=== PATIENT | female | born 1960 | race Caucasian/White ===

== ENCOUNTER → 2022-08-24 10:04 | Outpatient (CLI) | payer OTHER, SELFPAY ==
[2022-08-24 10:49] LABS: Add Manual Diff / Slide Review NO; Basophils Absolute Auto 0 /uL (0-100); Basophils Percent Auto 0.6 % (0-2); Eosinophils Absolute Auto 100 /uL (0-450); Eosinophils Percent Auto 2.1 % (2-4); Hematocrit 39.4 % (36-46); Lymphocytes Absolute Auto 2300 /uL (1100-4500); Mean Corpuscular Hemoglobin 29.4 PG (26-34); Mean Corpuscular Volume 89.1 fL (80-100); Monocytes Absolute Auto 600 /uL (0-900); Monocytes Percent Auto 9.6 % (3-14); Neutrophils Absolute Auto 3000 /uL (1500-7000); Neutrophils Percent Auto 49.7 % (50-75); Platelet Count 269 X10^3/uL (150-400); Red Blood Cell Count 4.42 X10^6/uL (4.0-5.2); Red Cell Distribution Width 13.5 % (11.6-14.8)
[2022-08-24 11:17] LABS: Alanine Aminotransferase 26 IU/L (<35); Albumin 4.2 g/dL (3.5-5.0); Albumin Globulin Ratio 1.6 (1.0-2.8); Alkaline Phosphatase 68 U/L (38-126); Aspartate Aminotransferase 24 IU/L (14-36); BUN Creatinine Ratio 21.1 (6-22); Bilirubin Total 0.5 mg/dL (0.2-1.3); Blood Urea Nitrogen 15 mg/dL (7-17); Calcium 9.4 mg/dL (8.4-10.2); Carbon Dioxide 28 mmol/L (22-32); Chloride 106 mmol/L (98-107); Cholesterol 148 mg/dL (140-199); Estimated Glomerular Filt Rate > 60 mL/min (>60); Globulin 2.7 g/dL (1.7-4.1); Glucose 100 mg/dL (80-110); HDL Cholesterol 58 mg/dL (40-60); HEMOLYSIS < 15 (0-50); LDL Cholesterol Calculated 70 mg/dL (<100); Potassium 3.9 mmol/L (3.4-5.1); Sodium 141 mmol/L (137-145); Total Protein 6.9 g/dL (6.3-8.2); Triglycerides 100 mg/dL (35-150)
[2022-08-24 11:53] LABS: Thyroid Stimulating Hormone 2.82 uIU/mL (0.47-4.68)
[2022-08-24 15:08] LABS: Creatinine Urine Random 193.1 mg/dL
[2022-08-24 15:12] LABS: Microalbumi Creatinin Ratio Ur 9.8 ug/mg CR (<30); Microalbumin Urine Random 1.9 mg/dL (0-1.6)
== END ==
PROVIDERS: PCP Nurse Practitioner; Referring Provider Nurse Practitioner; Visit Provider Nurse Practitioner
DX: Z00.00 Encounter for general adult medical examination without abnormal findings (principal)
CPT/HCPCS: 36415; 80053; 80061; 82043; 82570; 84443; 85025

== ENCOUNTER 2022-11-06 08:18 | Emergency (ER) | payer OTHER, SELFPAY ==
[2022-11-06] VITALS (16 sets, daily range): BP systolic 99–189; BP diastolic 60–92; PULSE 66–134; RESP 4–22; TEMP 36.5; O2SAT 94–98; BMI 45.3
--- NOTE | 2022-11-06 08:33 | ED_ITS ---
HPI - Arrhythmia/Palpitations General Chief Complaint: Arrhythmia/Palpitations Stated Complaint: afib since 7am Time Seen by Provider: 11/06/22 08:23 Source: patient Mode of arrival: Family Vehicle Limitations: no limitations History of Present Illness HPI narrative: Patient is a 62-year-old female. Does have a history of atrial fibrillation. Is on Eliquis and also metoprolol. She has taken her medications consistently over the past several weeks. Her last episode of atrial fibrillation was several years ago. She has been cardioverted before. States she woke up this morning feeling like her heart was beating fast. She also states that her watch told her that she was in atrial fibrillation. Went to bed last night feeling normal. His of some tightness in her chest. No problems breathing. No recent changes in any of her medications. Related Data Home Medications Medication Instructions Recorded Confirmed acetaminophen 500 mg capsule 1,000 mg PO Q6H PRN 08/15/22 amlodipine 5 mg tablet 5 mg PO DAILY 08/15/22 atorvastatin 20 mg tablet 20 mg PO BEDTIME 08/15/22 dabigatran etexilate 150 mg 150 mg PO BID 08/15/22 capsule (Pradaxa) metoprolol succinate 25 mg 25 mg PO DAILY 08/15/22 tablet,extended release 24 hr multivitamin 1 tab PO QAM 08/15/22 naproxen sodium 220 mg tablet 220 mg PO DAILY 08/15/22 Previous Rx's Medication Instructions Recorded levothyroxine 175 mcg tablet 175 mcg PO DAILY #90 tabs 08/15/22 Allergies Allergy/AdvReac Type Severity Reaction Status Date / Time polymyxin B AdvReac Mild Verified 11/06/22 08:32 Review of Systems Constitutional Constitutional: Reports system reviewed and no additional complaints, except as documented Cardiovascular Cardiovascular: Reports system reviewed and no additional complaints, except as documented Respiratory Respiratory: Reports system reviewed and no additional complaints, except as d ocumented Gastrointestinal Gastrointestinal: Reports system reviewed and no additional complaints, except as documented Hematologic/Lymphatic On Anticoagulants: No Patient History Medical History Allergies Asthma Atrial fibrillation (~2011) Basal cell carcinoma (~2019) Cataracts, bilateral (~2015) Cervical spine disease (~2019) Chronic back pain (~1979) Disease of spine (~2019) Fibroids (~1999) Foot pain (~2013) GERD (gastroesophageal reflux disease) Hearing loss Hemorrhoid Herpes (~1984) Hip pain, bilateral History of skin cancer HLD (hyperlipidemia) HTN (hypertension), benign (~2014) Hypothyroidism (acquired) Osteoarthritis (~1999) Peripheral neuropathy (~2017) Rectocele (~2015) Scoliosis Shoulder pain Sleep apnea (~2013) Thyroid nodule (~1999) Tinnitus (~1999) Surgical History (Updated 10/08/22 @ 20:25 by Salud Ferrera) Anesthesia History of cataract removal with insertion of prosthetic lens (~2015) History of hysterectomy (~2002) History of lumpectomy (~1989) History of thyroidectomy (~2004) Status post Mohs surgery Family History (Updated 10/08/22 @ 20:27 by Salud Ferrera) Father History of heart disease Hypertension Mother Cancer Grandfather History of heart disease Social History Smoking Status: Never smoker Smoking Status: Never smoker alcohol intake frequency: 0-2 drinks per day Substance Use Type: does not use Exam Initial Vital Signs Initial Vital Signs: Vital Signs Temperature 97.7 F 11/06/22 08:28 Pulse Rate 134 H 11/06/22 08:28 Respiratory Rate 22 11/06/22 08:28 Blood Pressure 189/92 H 11/06/22 08:28 Pulse Oximetry 98 11/06/22 08:28 Oxygen Delivery Method 11/06/22 08:28 Const General: cooperative, comfortable and No ill appearing HENMT Head: normal to inspection and normocephalic Resp Effort & Inspection: normal respiratory effort Auscultation: clear to auscultation bilaterally Cardio Rate: tachycardic Rhythm: abnormal rhythm GI Inspection: normal to inspection Skin General: no rashes or lesions noted Neuro General: patient alert, patient awake, patient oriented x3 and moves all extremities Speech: speech normal Gait: normal gait Extrem General: normal to inspection and capillary refill normal Psych Appearance: grossly normal and well kempt Procedures Cardioversion Consent Signed: Yes Indication: AFib with RVR Stability: Stable Number of attempts (shocks): 1 Joules used: 120 Cardiac rhythm post-cardioversion: Sinus rhythm Procedural Sedation Consent signed: Yes Indication: cardioversion ASA Class: II Mallampati Airway Classification: Class II Preparation: traffic monitor specialist applied, pulse oximeter, capnometry used, supplemental O2 applied, suction/airway equipment at bedside and IV secured Fentanyl: IV Fentanyl dose (mcg): 25 IV Propofol dose (mg): 80 Intraservice time/total sedation time (min): 15 ED Sedation Level: Moderate (Concious) Complications: hypoxia Interventions: Airway repositioned, Assist by BVM and Oxygen applied Scores GCS Christos coma scale eye opening: Spontaneous Christos coma scale verbal response: Orientated Holliday coma scale motor response: Obey commands Christos coma scale total score: 15 Course Orders Ordered: ED Orders 11/06/22 08:23 EKG-12 Lead Stat 11/06/22 08:34 EKG-12 Lead Stat 11/06/22 08:45 Basic Metabolic Panel Stat Complete Blood Count AUTO DIFF Stat Magnesium Stat Sodium Chloride (Normal Saline 0.9%) 1,000 mls @ 125 mls/hr IV CONT MARIAM Last Admin: 11/06/22 09:06 Dose: 125 mls/hr Documented By: SERAFIN Discontinued Medications Fentanyl (Fentanyl 100 Mcg/2 Ml Inj) 25 mcg IV NOW ONE Stop: 11/06/22 08:34 Last Admin: 11/06/22 10:29 Dose: 25 mcg Documented By: SERAFIN Propofol (Propofol 200 Mg/20 Ml Vial) 200 mg IV NOW ONE Stop: 11/06/22 08:34 Last Admin: 11/06/22 10:30 Dose: 80 mg Documented By: SERAFIN Vital Signs Vital signs: Vital Signs - 8 hr 11/06/22 08:28 11/06/22 10:49 11/06/22 10:50 Temperature 97.7 F Pulse Rate 134 H 71 Respiratory Rate 22 20 Blood Pressure 189/92 H 130/66 Pulse Oximetry 98 95 Oxygen Delivery Method Room Air 11/06/22 10:50 Temperature Pulse Rate 68 Respiratory Rate 14 Blood Pressure Pulse Oximetry 94 Oxygen Delivery Method MDM - Arrhythmia/Palpitations Differential Diagnosis Differential diagnosis: Likely palpitations, anxiety, sinus tachycardia, artial fibrillation, artial flutter, ventricular premature beats, supraventricular tachycardia, ventricular tachycardia, WPW and other Lab Data Attestation: I reviewed the patient's lab results. 11/06/22 08:45 11/06/22 08:45 Labs: Lab Results 11/06/22 11/06/22 Range/Units 08:45 08:45 WBC 6.7 (4.5-11.0) X10^3/uL RBC 4.83 (4.0-5.2) X10^6/uL Hgb 14.3 (12.0-16.0) g/dL Hct 42.4 (36-46) % MCV 87.8 (80-100) fL MCH 29.6 (26-34) PG MCHC 33.7 (30-36) % RDW 13.6 (11.6-14.8) % Plt Count 243 (150-400) X10^3/uL Neut % (Auto) 50.0 (50-75) % Lymph % (Auto) 39.6 (25-40) % [place] % (Auto) 8.2 (3-14) % Eos % (Auto) 1.7 L (2-4) % Baso % (Auto) 0.5 (0-2) % Neut # (Auto) 3400 (7075-6656) /uL Lymph # (Auto) 2700 (7320-8704) /uL [place] # (Auto) 600 (0-900) /uL Eos # (Auto) 100 (0-450) /uL Baso # (Auto) 0 (0-100) /uL Sodium 141 (137-145) mmol/L Potassium 3.8 (3.4-5.1) mmol/L Chloride 104 (98-107) mmol/L Carbon Dioxide 27 (22-32) mmol/L BUN 16 (7-17) mg/dL Creatinine 0.72 (0.52-1.04) mg/dL Estimated GFR > 60 (>60) mL/min BUN/Creatinine Ratio 22.2 H (6-22) Glucose 123 H (80-110) mg/dL Calcium 9.2 (8.4-10.2) mg/dL Magnesium 2.0 (1.6-2.3) mg/dL Point of Care Testing Test Results Not applicable ECG Data Attestation: I personally reviewed and interpreted this ECG as follows: Interpretation: Atrial fibrillation Ventricular rate 119 Normal axis Normal QRS Normal QTC Nonspecific ST T wave changes Post cardioversion Sinus rhythm Ventricular rate is 67 Normal axis Normal QRS Normal QTC No ST T wave changes MDM Narrative Medical decision making narrative: Patient with stable atrial fibrillation. She is anti coagulated. I discussed risks and benefits of both rate control versus rhythm control. We discussed sedation and cardioversion. After this discussion she opted for the cardioversion. She was sedated and had a very short episode of hypoxia which improved with findings supplemental oxygen and also a jaw lift. She cardioverted with just 1 shock. She tolerated the procedure very well. Does not remember the procedure. Is now in sinus rhythm. Will have her continue to take all of her medications as directed. She is going to follow-up with cardiology. She was given return precautions. She expressed understanding and agreement. Discharge Plan Departure Patient Disposition: Home Clinical Impression: Atrial fibrillation status post cardioversion Instructions: DI for Cardioversion, DI for Atrial Fibrillation Activity Restrictions/Additional Instructions: Recommend that you continue to take all of your medications as directed. Contact your primary doctor for follow-up. Return to the emergency for new symptoms Prescriptions: No Action dabigatran etexilate [Pradaxa] 150 mg capsule 150 mg PO BID metoprolol succinate 25 mg tablet extended release 24 hr 25 mg PO DAILY amlodipine 5 mg tablet 5 mg PO DAILY atorvastatin 20 mg tablet 20 mg PO BEDTIME multivitamin Tablet 1 tab PO QAM levothyroxine 175 mcg tablet 175 mcg PO DAILY Qty: 90 3RF Rx Instructions: Take 1 tab daily on an empty stomach for hypothyroidism naproxen sodium 220 mg tablet 220 mg PO DAILY Rx Instructions: Pt takes on average at bedtime weekly, not daily. acetaminophen 500 mg capsule 1,000 mg PO Q6H PRN Rx Instructions: NTE 3000mg/24 hours Referrals: Cary Mason ARNP [Primary Care Provider] - Stand Alone Forms: Patient Portal/API
[2022-11-06 08:55] LABS: Add Manual Diff / Slide Review NO; Basophils Absolute Auto 0 /uL (0-100); Basophils Percent Auto 0.5 % (0-2); Eosinophils Absolute Auto 100 /uL (0-450); Eosinophils Percent Auto 1.7 % (2-4); Hematocrit 42.4 % (36-46); Hemoglobin 14.3 g/dL (12.0-16.0); Lymphocytes Absolute Auto 2700 /uL (1100-4500); Lymphocytes Percent Auto 39.6 % (25-40); Mean Corpuscular HGB Conc 33.7 % (30-36); Mean Corpuscular Hemoglobin 29.6 PG (26-34); Mean Corpuscular Volume 87.8 fL (80-100); Monocytes Absolute Auto 600 /uL (0-900); Monocytes Percent Auto 8.2 % (3-14); Neutrophils Absolute Auto 3400 /uL (1500-7000); Platelet Count 243 X10^3/uL (150-400); Red Blood Cell Count 4.83 X10^6/uL (4.0-5.2); Red Cell Distribution Width 13.6 % (11.6-14.8); White Blood Cell Count 6.7 X10^3/uL (4.5-11.0)
[2022-11-06 09:05] LABS: BUN Creatinine Ratio 22.2 (6-22); Blood Urea Nitrogen 16 mg/dL (7-17); Calcium 9.2 mg/dL (8.4-10.2); Carbon Dioxide 27 mmol/L (22-32); Chloride 104 mmol/L (98-107); Estimated Glomerular Filt Rate > 60 mL/min (>60); Glucose 123 mg/dL (80-110); HEMOLYSIS < 15 (0-50); Potassium 3.8 mmol/L (3.4-5.1); Sodium 141 mmol/L (137-145)
[2022-11-06] MEDS: SODIUM CHLORIDE 0.9% 1,000 ML 125 ML IV (09:06)
[2022-11-06] MEDS: fentaNYL 100 MCG/2 ML INJ 25 MCG IV (10:29)
[2022-11-06] MEDS: propofoL 200 MG/20 ML VIAL IV (10:30)
--- NOTE | 2022-11-06 10:52 | PC.NURSE ---
see vital sign sheet for every 5 mins vital signs.
== END 2022-11-06 12:09 | disposition home or self-care (01) ==
PROVIDERS: Emergency Provider Emergency Medicine; Family Provider Nurse Practitioner; PCP Nurse Practitioner
DX: I48.91 Unspecified atrial fibrillation (principal); Z79.01 Long term (current) use of anticoagulants; R09.02 Hypoxemia
CPT/HCPCS: 36415; 80048; 83735; 85025; 92960; 93005; 96360; 96361; 99152; 99285; J2704; J3010

== ENCOUNTER → 2022-12-19 09:55 | Outpatient (CLI) | payer OTHER, SELFPAY ==
[2022-12-19 11:24] LABS: Alanine Aminotransferase 19 IU/L (<35); Albumin 4.2 g/dL (3.5-5.0); Albumin Globulin Ratio 1.4 (1.0-2.8); Alkaline Phosphatase 74 U/L (38-126); Aspartate Aminotransferase 21 IU/L (14-36); BUN Creatinine Ratio 21.5 (6-22); Bilirubin Total 0.4 mg/dL (0.2-1.3); Blood Urea Nitrogen 14 mg/dL (7-17); Carbon Dioxide 28 mmol/L (22-32); Chloride 106 mmol/L (98-107); Estimated Glomerular Filt Rate > 60 mL/min (>60); Globulin 3.1 g/dL (1.7-4.1); Glucose 112 mg/dL (80-110); HEMOLYSIS < 15 (0-50); Potassium 4.1 mmol/L (3.4-5.1); Sodium 140 mmol/L (137-145); Total Protein 7.3 g/dL (6.3-8.2)
[2022-12-20 15:55] LABS: HIV 1 & 2 Ab/Ag 4th Gen Combo NEGATIVE (NEGATIVE); Hep C Virus Ab w/Reflex Quant NEGATIVE s/c (NEGATIVE)
== END ==
PROVIDERS: Family Provider Nurse Practitioner; PCP Nurse Practitioner; Referring Provider Nurse Practitioner; Visit Provider Nurse Practitioner
DX: Z11.59 Encounter for screening for other viral diseases (principal); Z11.4 Encounter for screening for human immunodeficiency virus [HIV]; R73.03 Prediabetes
CPT/HCPCS: 36415; 80053; 83036; 86803; 87389

== ENCOUNTER → 2022-12-31 09:13 | Outpatient (CLI) | payer OTHER, SELFPAY ==
--- NOTE | 2022-12-31 | DI.ECHO.S_ITS ---
[facility]---------+ [facility] +---------+ : : [address] : : : : [id number] : : : : Phone: [phone]+ Echocardiogram Report + + :Name: ALEJANDRA TURNER Study Date: 12/31/2022 Height: 70 in : :[facility] ReadingLocation: Weight: 310 lb : : Gender: Female BSA: 2.5 m2 : :: 1960 Age: 62 yrs BP: 141/85 mmHg: :Reason For Study: ATRIAL FIBRILLATION HR: 62 : :Ordering Physician: ARUN, : :FIDE Rhodes Performed By: DORIAN REBOLLAR : :Referring: FIDE DIAS : + + Interpretation Summary The study quality was technically difficult. The ejection fraction is estimated to be 55-60%. Diastolic parameters suggest probable normal left ventricular diastolic function and normal filling pressures. The right ventricle is normal in size and function. No significant valvular abnormalities although limited visualization. Unable to estimate PASP. Procedure: A two-dimensional transthoracic echocardiogram with color flow and Doppler was performed. There is no prior echocardiogram noted for this patient. The study quality was technically difficult. The patient was in normal sinus rhythm during the exam. Left Ventricle: The left ventricle is normal in size and wall thickness. Left ventricular systolic function is normal. The ejection fraction is estimated to be 55-60%. Diastolic parameters suggest probable normal left ventricular diastolic function and normal filling pressures. Right Ventricle: The right ventricle is normal in size and function. Atria: Both atria are normal in size. Mitral Valve: The mitral valve is normal in structure and function. There is trace mitral regurgitation. Aortic Valve: The aortic valve is not well visualized. There is no aortic valve stenosis. No aortic regurgitation is present. Tricuspid Valve: The tricuspid valve is not well visualized. There is a trace or physiologic amount of tricuspid regurgitation. Pulmonary artery pressures cannot be estimated because of the lack of a measurable TR jet velocity. Pulmonic Valve: The pulmonic valve is not well visualized. There is no pulmonic valvular regurgitation. Great Vessels: The aortic root is normal size. The ascending aorta is normal in size. The IVC is of normal diameter and collapses greater than 50% with a sniff. This suggests a low right atrial pressure of 3 mm Hg. Pericardium/ Pleura There is no pericardial effusion. There is no pleural effusion. MMode/2D Measurements & Calculations LVOT diam: 2.0 cm LA A2 area: 23.5 cm2 Ao root diam: 3.2 cm LA A4 area: 20.7 cm2 asc Aorta Diam: 3.4 cm LA length (vol): 5.3 cm LA vol: 77.5 ml LA vol index: 30.8 ml/m2 RA long axis: 5.1 cm RVD1 (basal): 4.4 cm LVLs ap4: 7.1 cm LVLd ap2: 9.1 cm LVLs ap2: 7.5 cm TAPSE_phl: 2.5 cm Doppler Measurements & Calculations Ao V2 max: 177.0 cm/sec LVOT Max Rm: 124.0 cm/sec Ao V2 mean: 126.0 cm/sec LV V1 max P.2 mmHg Ao max P.0 mmHg LV V1 VTI: 33.2 cm Ao mean P.0 mmHg VEGA(I,D): 2.5 cm2 Ao V2 VTI: 42.2 cm VEGA(V,D): 2.2 cm2 sev ratio: 0.79 VEGA indexed to BSA (cm^2/m^2): 0.98 MV E max rm: 116.0 cm/sec TR max rm: 195.0 cm/sec MV A max rm: 86.6 cm/sec TR max P.2 mmHg MV E/A: 1.3 PA V2 max: 84.5 cm/sec Med Peak E' Rm: 10.6 cm/sec PA V2 mean: 61.0 cm/sec E/E' med: 10.9 PA mean P.0 mmHg Lat Peak E' Rm: 13.8 cm/sec PA pr(Accel): 19.6 mmHg E/E' lat: 8.4 E/e' average: 9.7 MV dec time: 0.24 sec SV(LVOT): 104.3 ml AV VR_phl: 0.70 VEGA(VTI)/BSA_phl: 0.98 MV P1/2t-pr_phl: 71.0 msec Reading Physician:12:38 PM
== END ==
PROVIDERS: Family Provider Nurse Practitioner; PCP Nurse Practitioner; Referring Provider Nurse Practitioner; Visit Provider Nurse Practitioner
DX: I48.0 Paroxysmal atrial fibrillation (principal)
CPT/HCPCS: 93306

== ENCOUNTER 2023-01-03 14:30 | Outpatient (RCR) | payer OTHER, SELFPAY ==
--- NOTE | 2022-10-23 16:15 | PT.OIE ---
Current Diagnoses Pain in right hip (10/23/22) Pain in left hip (10/23/22) Difficulty in walking, not elsewhere classified (10/23/22) Past Medical History (Last Updated 10/08/22 @ 20:25 by Salud Ferrera) Allergies Asthma Atrial fibrillation (~2011) Basal cell carcinoma (~2019) Cataracts, bilateral (~2015) Cervical spine disease (~2019) Chronic back pain (~1979) Disease of spine (~2019) Fibroids (~1999) Foot pain (~2013) GERD (gastroesophageal reflux disease) Hearing loss Hemorrhoid Herpes (~1984) Hip pain, bilateral History of skin cancer HLD (hyperlipidemia) HTN (hypertension), benign (~2014) Hypothyroidism (acquired) Osteoarthritis (~1999) Peripheral neuropathy (~2017) Rectocele (~2015) Scoliosis Shoulder pain Sleep apnea (~2013) Thyroid nodule (~1999) Tinnitus (~1999) Past Surgical History (Last Updated 10/08/22 @ 20:25 by Salud Ferrera) Anesthesia History of cataract removal with insertion of prosthetic lens (~2015) History of hysterectomy (~2002) History of lumpectomy (~1989) History of thyroidectomy (~2004) Status post Mohs surgery Visit Care Team Role Provider Type BRANT Montez Attending Provider Advanced Terminal Operations Supervisor Family Provider Primary Care Provider Referring Provider Specialty: Family Practice Address: [address] [place] [address], [facility] Email: [email or web address] Physical Therapy Initial Evaluation PT-OP-A Visit Information Start: 10/22/22 16:57 Freq: Status: Active Protocol: Document 10/23/22 16:00 AW (Rec: 10/22/22 17:03 AW [id number]) Out-Patient Physical Therapy Visit Information Visit Information Visit Type Initial Evaluation Visit Start Time 15:15 Visit Stop Time 16:00 Total Visit Minutes 45 Visit Number 1 Evaluation Information Evaluation Date 10/23/22 PT-OP-B Current Condition Start: 10/22/22 16:57 Freq: Status: Active Protocol: Document 10/23/22 16:00 AW (Rec: 10/22/22 17:03 AW [id number]) Current Condition History of Current Condition Onset Date 6+ months Current Complaints bilateral hip pain, stiffness, weakness History of Current Condition Pt reports bilateral hip pain for at least the past six months which is affecting her walking and exercise tolerance . The left hip hurts worse than the right. She can feel a clunk on the outside of her left hip when she is walking but it doesn't necessarily hurt. She feels extremely stiff after sitting for any length of time. She has been doing some [employer] classes but finds that her pain is limiting. 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 She feels she has been limping for years due to the foot pain and wonders if her limp has contributed to her hip pain. She notices she is catching her feet on stair treads and now climbs stairs with step-to pattern and railing. She has mild lumbar scoliosis so has had some back pain since a teenager. She is taking meloxicam occasionally . She has seen ortho. Recent x -rays showed no problem with the hip joints. Ortho says not a EARNEST candidate. Pt has had cortisone injection in left hip bursa ~1 year ago. Prior Treatments and Tests Imaging at [facility] - hip joints looked good. Spine - has had MRI - severe degenerative disc disease. Cortisone injection in left hip bursa ~1 year ago Treatment Goals Patient/Caregiver Goals Walk 2-3 miles per day. Be able to stand from a regular chair without use of UE's. Normalize pattern on stairs. Personal Factors Other Personal Factors That May Effect A fib on anti coagulation. HTN Therapy/Recovery . Obesity with BMI>40. PT-OP-C Subjective Start: 10/22/22 16:57 Freq: Status: Active Protocol: Document 10/23/22 16:00 AW (Rec: 10/23/22 17:25 AW [id number]) Patient Questionnaires Lower Extremity Functional Scale LEFS Score 30 LEFS Impairment 60 to 79% Impaired (Score 17- 31) OP-PT Pain Assessment Pain Assessment Grid Paper Pain Assessment Grid Completed Yes: Scanned to EMR PT-OP-D Balance Start: 10/22/22 16:57 Freq: Status: Active Protocol: Document 10/23/22 16:00 AW (Rec: 10/23/22 17:25 AW [id number]) Balance Tests Single Limb Standing Single Limb- Right able but with increased shear; <5 sec Single Limb- Left able but with increased shear; <3 sec PT-OP-F Manual Assessment Start: 10/22/22 16:57 Freq: Status: Active Protocol: Document 10/23/22 16:00 AW (Rec: 10/23/22 17:25 AW [id number]) Manual Assessments Soft Tissue Assessment Soft Tissue Mobility Assessment Tender to palpation posterior to greater trochanter and in distribution of glut med (L more affected than R). Sensitive to deep pressure at greater trochanters bilaterally. PT-OP-G Mobility & Gait Start: 10/22/22 16:57 Freq: Status: Active Protocol: Document 10/23/22 16:00 AW (Rec: 10/23/22 17:25 AW [id number]) OP Mobility Evaluation Transfers Sit to Stand Needs UE assist for standard height chair. Is able to sit<> stand from 20 surface with arms crossed but uses momentum . OP Gait Assessment Comments Gait Comments Pt walks with wide BENITEZ and slight genu valgus bilaterally . Feet are turned out. Good heel strike. Adequate step length. Pt tends to lean trunk toward stance leg, resulting in waddling pattern (pt's words). Stair Climbing Evaluation Comments Stair Climbing Comments Step-to patterning on 6 steps and definite need for rails. Can ascend/descend with unilateral rail. PT-OP-J Posture/Palpation/Skin Start: 10/22/22 16:57 Freq: Status: Active Protocol: Document 10/23/22 16:00 AW (Rec: 10/23/22 17:32 AW [id number]) Posture Evaluation Comments Posture Comments Decreased LLE weightbearing/ weight shifted R. Anterior pelvic tilt causes increase in lumbar lordosis. PT-OP-K Range of Motion Start: 10/22/22 16:57 Freq: Status: Active Protocol: Document 10/23/22 16:00 AW (Rec: 10/23/22 17:32 AW [id number]) Hip Goniometric Range of Motion Hip ROM Limitations Comments No significant retriction in flexion, abduction, rotation. Passive SLR is to 80 degrees bilaterally. Definite lack of extension ROM. Knee Goniometric Range of Motion Knee ROM Limitations Comments Slight tendency toward hyperextension. PT-OP-L Special Tests Start: 10/22/22 16:57 Freq: Status: Active Protocol: Document 10/23/22 16:00 AW (Rec: 10/23/22 17:32 AW [id number]) Special Tests Hip Special Tests Trendelenberg Test Results positive bilaterally (L more affected than R) Arsenio Test Results positive bilaterally Scour Test Test Results negative bilaterally Knee Special Tests Kenyon's Test Test Results negative bilaterally PT-OP-M Strength Start: 10/22/22 16:57 Freq: Status: Active Protocol: Document 10/23/22 16:00 AW (Rec: 10/23/22 17:32 AW [id number]) Hip Strength Hip Manual Muscle Testing Right Flexion (L2) 4- Good- Extension (S1) 3- Fair- Abduction 3+ Fair+ Left Flexion (L2) 4- Good- Extension (S1) 3- Fair- Abduction 3- Fair- Knee Strength Knee Manual Muscle Testing Bilateral Flexion (S2) 4+ Good+ Extension (L3) 5 Normal Ankle/Foot Strength Ankle and Foot Manual Muscle Testing Bilateral Dorsiflexion (L4) 5 Normal Plantarflexion (S1) 4- Good- Comments PF tested in standing. Pt unable to complete >3 single leg heel lifts PT-OP-T Assessment and Plan Start: 10/22/22 16:57 Freq: Status: Active Protocol: Document 10/23/22 16:00 AW (Rec: 10/23/22 17:41 AW [id number]) Physical Therapy Assessment Rehab Potential Rehabilitation Potential Good Evaluation Complexity Number of Personal Factors/Comorbidities 3 or More Number of Body Systems Impaired 1-2 Clinical Presentation at Evaluation Evolving Impairments Impairments Balance,Gait,Pain,Posture,ROM, Soft Tissue Mobility,Strength, Transfers Goals Four Impairment stairs Film Inspector Goal (LTG) Pt will ascend and descend 6 stairs with unilateral rail and reciprocating pattern without significant compensations. LTG Duration 01/21/23 Three Impairment walking tolerance Short Term Goal (STG) Pt will walk one mile in the community without increase in baseline pain STG Duration 12/04/22 Film Inspector Goal (LTG) Pt will walk 2 miles in the community without increase in baseline pain. LTG Duration 01/21/23 Two Impairment strength Short Term Goal (STG) Pt will complete 5 Time Sit to Stand from standard height chair without use of UE's in 13 seconds or less as a measure of improved strength STG Duration 12/04/22 Film Inspector Goal (LTG) Pt will improve bilateral hip extension and abduction strength to 4/5 or greater to improve gait mechanics LTG Duration 01/21/23 One Impairment HEP Short Term Goal (STG) Pt will be instructed in HEP for ROM, strength, and tissue extensibility to support therapy services provided in clinic STG Duration 12/04/22 Film Inspector Goal (LTG) Pt will be independent with HEP to improve her strength for return to regular walking program LTG Duration 01/21/23 Assessment Summary Assessment Paula is a 62 yo woman who attends physical therapy with complaints of bilateral hip pain (left more affected than right). This pain has been relatively constant for about six months. Her hip joints are normal on x-rays. She presents with impaired hip strength especially in abduction and extension as well as impaired hip extension ROM. She has a significant compensated Trendelenberg gait with excessive trunk lean toward her stance leg. She has tenderness in the distribution of bilateral hip abductors suggestive of gluteal tendinopathy. Pt is expected to benefit from skilled therapy to reduce her pain, increase her strength, and improve the quality of her gait for return to functional activities and regular exercise. Physical Therapy Plan Frequency and Duration Frequency of Treatment 2x/Week Plan of Care Start Date 10/23/22 Plan of Care End Date 01/21/23 Therapeutic Interventions Therapeutic Interventions Balance Training,Gait Training ,Manual Therapy,Neuromuscular Re-education,Self-Care/Home Management,Soft Tissue Mobilization,Taping, Therapeutic Activities, Therapeutic Exercises Modalities Cold Pack/Ice Massage,Electric Stimulation,Hot Packs Next Visit Focus/Plan Next Note Type Treatment Note Next Visit Plan assess stairs. begin supine or seated hip strength. initiate A/P weight shifting exercise for glute drive awareness
--- NOTE | 2022-10-23 16:15 | PT.OPPOC ---
Physical, Occupational & Speech Therapy At [facility] Current Diagnoses Pain in right hip (10/23/22) Pain in left hip (10/23/22) Difficulty in walking, not elsewhere classified (10/23/22) Visit Care Team Role Provider Type BRANT Montez Attending Provider Advanced Property Analyst Family Provider Primary Care Provider Referring Provider Specialty: Family Practice Address: [address] [place] [address], [facility] Email: [email or web address] Plan Of Care PT-OP-T Assessment and Plan Start: 10/22/22 16:57 Freq: Status: Active Protocol: Document 10/23/22 16:00 AW (Rec: 10/23/22 17:41 AW [id number]) Physical Therapy Assessment Rehab Potential Rehabilitation Potential Good Evaluation Complexity Number of Personal Factors/Comorbidities 3 or More Number of Body Systems Impaired 1-2 Clinical Presentation at Evaluation Evolving Impairments Impairments Balance,Gait,Pain,Posture,ROM, Soft Tissue Mobility,Strength, Transfers Goals Four Impairment stairs Design Verification Engineer Goal (LTG) Pt will ascend and descend 6 stairs with unilateral rail and reciprocating pattern without significant compensations. LTG Duration 01/21/23 Three Impairment walking tolerance Short Term Goal (STG) Pt will walk one mile in the community without increase in baseline pain STG Duration 12/04/22 Design Verification Engineer Goal (LTG) Pt will walk 2 miles in the community without increase in baseline pain. LTG Duration 01/21/23 Two Impairment strength Short Term Goal (STG) Pt will complete 5 Time Sit to Stand from standard height chair without use of UE's in 13 seconds or less as a measure of improved strength STG Duration 12/04/22 Design Verification Engineer Goal (LTG) Pt will improve bilateral hip extension and abduction strength to 4/5 or greater to improve gait mechanics LTG Duration 01/21/23 One Impairment HEP Short Term Goal (STG) Pt will be instructed in HEP for ROM, strength, and tissue extensibility to support therapy services provided in clinic STG Duration 12/04/22 Design Verification Engineer Goal (LTG) Pt will be independent with HEP to improve her strength for return to regular walking program LTG Duration 01/21/23 Assessment Summary Assessment Paula is a 62 yo woman who attends physical therapy with complaints of bilateral hip pain (left more affected than right). This pain has been relatively constant for about six months. Her hip joints are normal on x-rays. She presents with impaired hip strength especially in abduction and extension as well as impaired hip extension ROM. She has a significant compensated Trendelenberg gait with excessive trunk lean toward her stance leg. She has tenderness in the distribution of bilateral hip abductors suggestive of gluteal tendinopathy. Pt is expected to benefit from skilled therapy to reduce her pain, increase her strength, and improve the quality of her gait for return to functional activities and regular exercise. Physical Therapy Plan Frequency and Duration Frequency of Treatment 2x/Week Plan of Care Start Date 10/23/22 Plan of Care End Date 01/21/23 Therapeutic Interventions Therapeutic Interventions Balance Training,Gait Training ,Manual Therapy,Neuromuscular Re-education,Self-Care/Home Management,Soft Tissue Mobilization,Taping, Therapeutic Activities, Therapeutic Exercises Modalities Cold Pack/Ice Massage,Electric Stimulation,Hot Packs Next Visit Focus/Plan Next Note Type Treatment Note Next Visit Plan assess stairs. begin supine or seated hip strength. initiate A/P weight shifting exercise for glute drive awareness Plan of Care Dates Plan of Care Start Date 10/23/22 Plan of Care End Date 01/21/23 Electronically Signed by: Lizzeth Hoffmann PT 10/28/22 [id number] If you are in agreement with this Plan of Care, please return a signed and dated copy. I have reviewed this Plan of Care and certify that the skilled therapy services above are required to meet the patient?s needs. Physician Signature Date Printed Name and Credentials Clinical Instructor Signature Printed Name and Credentials
--- NOTE | 2022-10-30 17:06 | PT.OTN ---
Current Diagnoses Pain in right hip (10/30/22) Pain in left hip (10/30/22) Difficulty in walking, not elsewhere classified (10/30/22) Physical Therapy Treatment Note PT-OP-A Visit Information Start: 10/22/22 16:57 Freq: Status: Active Protocol: Document 10/30/22 14:05 AW (Rec: 10/30/22 17:06 AW [id number]) Out-Patient Physical Therapy Visit Information Visit Information Visit Type Treatment Note Visit Start Time 15:15 Visit Stop Time 16:00 Total Visit Minutes 45 Visit Number 2 Evaluation Information Evaluation Date 10/23/22 PT-OP-B Current Condition Start: 10/22/22 16:57 Freq: Status: Active Protocol: Document 10/23/22 16:00 AW (Rec: 10/22/22 17:03 AW [id number]) Current Condition History of Current Condition Onset Date 6+ months Current Complaints bilateral hip pain, stiffness, weakness History of Current Condition Pt reports bilateral hip pain for at least the past six months which is affecting her walking and exercise tolerance . The left hip hurts worse than the right. She can feel a clunk on the outside of her left hip when she is walking but it doesn't necessarily hurt. She feels extremely stiff after sitting for any length of time. She has been doing some [email or web address] classes but finds that her pain is limiting. 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 She feels she has been limping for years due to the foot pain and wonders if her limp has contributed to her hip pain. She notices she is catching her feet on stair treads and now climbs stairs with step-to pattern and railing. She has mild lumbar scoliosis so has had some back pain since a teenager. She is taking meloxicam occasionally . She has seen ortho. Recent x -rays showed no problem with the hip joints. Ortho says not a EARNEST candidate. Pt has had cortisone injection in left hip bursa ~1 year ago. Prior Treatments and Tests Imaging at [facility] - hip joints looked good. Spine - has had MRI - severe degenerative disc disease. Cortisone injection in left hip bursa ~1 year ago Treatment Goals Patient/Caregiver Goals Walk 2-3 miles per day. Be able to stand from a regular chair without use of UE's. Normalize pattern on stairs. Personal Factors Other Personal Factors That May Effect A fib on anti coagulation. HTN Therapy/Recovery . Obesity with BMI>40. 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 She noticed she was [place] with a bit more ease than she expected. PT-OP-D Balance Start: 10/22/22 16:57 Freq: Status: Active Protocol: Document 10/23/22 16:00 AW (Rec: 10/23/22 17:25 AW [id number]) Balance Tests Single Limb Standing Single Limb- Right able but with increased shear; <5 sec Single Limb- Left able but with increased shear; <3 sec PT-OP-F Manual Assessment Start: 10/22/22 16:57 Freq: Status: Active Protocol: Document 10/23/22 16:00 AW (Rec: 10/23/22 17:25 AW [id number]) Manual Assessments Soft Tissue Assessment Soft Tissue Mobility Assessment Tender to palpation posterior to greater trochanter and in distribution of glut med (L more affected than R). Sensitive to deep pressure at greater trochanters bilaterally. PT-OP-G Mobility & Gait Start: 10/22/22 16:57 Freq: Status: Active Protocol: Document 10/23/22 16:00 AW (Rec: 10/23/22 17:25 AW [id number]) OP Mobility Evaluation Transfers Sit to Stand Needs UE assist for standard height chair. Is able to sit<> stand from 20 surface with arms crossed but uses momentum . OP Gait Assessment Comments Gait Comments Pt walks with wide BENITEZ and slight genu valgus bilaterally . Feet are turned out. Good heel strike. Adequate step length. Pt tends to lean trunk toward stance leg, resulting in waddling pattern (pt's words). Stair Climbing Evaluation Comments Stair Climbing Comments Step-to patterning on 6 steps and definite need for rails. Can ascend/descend with unilateral rail. PT-OP-J Posture/Palpation/Skin Start: 10/22/22 16:57 Freq: Status: Active Protocol: Document 10/23/22 16:00 AW (Rec: 10/23/22 17:32 AW [id number]) Posture Evaluation Comments Posture Comments Decreased LLE weightbearing/ weight shifted R. Anterior pelvic tilt causes increase in lumbar lordosis. PT-OP-K Range of Motion Start: 10/22/22 16:57 Freq: Status: Active Protocol: Document 10/23/22 16:00 AW (Rec: 10/23/22 17:32 AW [id number]) Hip Goniometric Range of Motion Hip ROM Limitations Comments No significant retriction in flexion, abduction, rotation. Passive SLR is to 80 degrees bilaterally. Definite lack of extension ROM. Knee Goniometric Range of Motion Knee ROM Limitations Comments Slight tendency toward hyperextension. PT-OP-L Special Tests Start: 10/22/22 16:57 Freq: Status: Active Protocol: Document 10/23/22 16:00 AW (Rec: 10/23/22 17:32 AW [id number]) Special Tests Hip Special Tests Trendelenberg Test Results positive bilaterally (L more affected than R) Arsenio Test Results positive bilaterally Scour Test Test Results negative bilaterally Knee Special Tests Kenyon's Test Test Results negative bilaterally PT-OP-M Strength Start: 10/22/22 16:57 Freq: Status: Active Protocol: Document 10/23/22 16:00 AW (Rec: 10/23/22 17:32 AW [id number]) Hip Strength Hip Manual Muscle Testing Right Flexion (L2) 4- Good- Extension (S1) 3- Fair- Abduction 3+ Fair+ Left Flexion (L2) 4- Good- Extension (S1) 3- Fair- Abduction 3- Fair- Knee Strength Knee Manual Muscle Testing Bilateral Flexion (S2) 4+ Good+ Extension (L3) 5 Normal Ankle/Foot Strength Ankle and Foot Manual Muscle Testing Bilateral Dorsiflexion (L4) 5 Normal Plantarflexion (S1) 4- Good- Comments PF tested in standing. Pt unable to complete >3 single leg heel lifts PT-OP-Q Treatments Start: 10/22/22 16:57 Freq: Status: Active Protocol: Document 10/30/22 14:05 AW (Rec: 10/30/22 17:06 AW [id number]) Cardio Equipment Recumbent Elliptical (Biodex) Duration (Minutes) 6 Resistance 2 Seat Position 9 Other repetitive motion slightly irritating to left hip Therapeutic Exercises Supine Exercises SKTC Supine Exercise Name SKTC bridge Supine Exercise Name bridge Reps/Minutes 5SH x 5 Comments HEP piriformis stretch Supine Exercise Name piriformis stretch - opp foot planted Side bilateral Comments pt prefers sitting - check next visit hooklying clam Supine Exercise Name hooklying clam Side bilateral Resistance TB2 at knees Reps/Minutes 20 SH x 10 Comments HEP Sidelying Exercises clamshell Sidelying Exercise Name clamshell Side bilateral Resistance AROM Reps/Minutes x10 Comments clinic only; trialed LLE reverse clam but pt reported pain Gait Training Gait Activity stairs Description stairs Device Used 1-2 rails Level of Assistance SBA Surface 4 and 6 steps Treatment Focus assessment Manual Therapy Treatment Soft Tissue Mobilization left glutes Body Location L glutes Mobilization Type Rolling,Strumming,Sustained Pressure Intensity/Depth Moderate Body Position Sidelying Comments Pt notes distal LE tingling with deep pressure at glute med and external rotators. PT-OP-T Assessment and Plan Start: 10/22/22 16:57 Freq: Status: Active Protocol: Document 10/30/22 14:05 AW (Rec: 10/30/22 17:06 AW [id number]) Physical Therapy Assessment Goals Four Impairment stairs Half-Way Goal (LTG) Pt will ascend and descend 6 stairs with unilateral rail and reciprocating pattern without significant compensations. LTG Duration 01/21/23 Three Impairment walking tolerance Short Term Goal (STG) Pt will walk one mile in the community without increase in baseline pain STG Duration 12/04/22 Peer Counselor Goal (LTG) Pt will walk 2 miles in the community without increase in baseline pain. LTG Duration 01/21/23 Two Impairment strength Short Term Goal (STG) Pt will complete 5 Time Sit to Stand from standard height chair without use of UE's in 13 seconds or less as a measure of improved strength STG Duration 12/04/22 Peer Counselor Goal (LTG) Pt will improve bilateral hip extension and abduction strength to 4/5 or greater to improve gait mechanics LTG Duration 01/21/23 One Impairment HEP Short Term Goal (STG) Pt will be instructed in HEP for ROM, strength, and tissue extensibility to support therapy services provided in clinic STG Duration 12/04/22 Peer Counselor Goal (LTG) Pt will be independent with HEP to improve her strength for return to regular walking program LTG Duration 01/21/23 Assessment Summary Assessment Paula had quick approach to fatigue with sidelying clamshell. Issued HEP to include isometric hooklying clam and supine bridge. Physical Therapy Plan Frequency and Duration Frequency of Treatment 2x/Week Plan of Care Start Date 10/23/22 Plan of Care End Date 01/21/23 Therapeutic Interventions Therapeutic Interventions Balance Training,Gait Training ,Manual Therapy,Neuromuscular Re-education,Self-Care/Home Management,Soft Tissue Mobilization,Taping, Therapeutic Activities, Therapeutic Exercises Modalities Cold Pack/Ice Massage,Electric Stimulation,Hot Packs Next Visit Focus/Plan Next Note Type Treatment Note Next Visit Plan Continue with hip strength. Initiate A/P weight shifting for glute drive awareness. Consider prone rotation mob
--- NOTE | 2022-11-01 16:04 | PT.OTN ---
Current Diagnoses Pain in right hip (11/01/22) Pain in left hip (11/01/22) Difficulty in walking, not elsewhere classified (11/01/22) Physical Therapy Treatment Note PT-OP-A Visit Information Start: 10/22/22 16:57 Freq: Status: Active Protocol: Document 11/01/22 14:16 AW (Rec: 11/01/22 16:04 AW [id number]) Out-Patient Physical Therapy Visit Information Visit Information Visit Type Treatment Note Visit Start Time 15:15 Visit Stop Time 16:00 Total Visit Minutes 45 Visit Number 3 Evaluation Information Evaluation Date 10/23/22 PT-OP-B Current Condition Start: 10/22/22 16:57 Freq: Status: Active Protocol: Document 10/23/22 16:00 AW (Rec: 10/22/22 17:03 AW [id number]) Current Condition History of Current Condition Onset Date 6+ months Current Complaints bilateral hip pain, stiffness, weakness History of Current Condition Pt reports bilateral hip pain for at least the past six months which is affecting her walking and exercise tolerance . The left hip hurts worse than the right. She can feel a clunk on the outside of her left hip when she is walking but it doesn't necessarily hurt. She feels extremely stiff after sitting for any length of time. She has been doing some [employer] classes but finds that her pain is limiting. 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 She feels she has been limping for years due to the foot pain and wonders if her limp has contributed to her hip pain. She notices she is catching her feet on stair treads and now climbs stairs with step-to pattern and railing. She has mild lumbar scoliosis so has had some back pain since a teenager. She is taking meloxicam occasionally . She has seen ortho. Recent x -rays showed no problem with the hip joints. Ortho says not a EARNEST candidate. Pt has had cortisone injection in left hip bursa ~1 year ago. Prior Treatments and Tests Imaging at [facility] - hip joints looked good. Spine - has had MRI - severe degenerative disc disease. Cortisone injection in left hip bursa ~1 year ago Treatment Goals Patient/Caregiver Goals Walk 2-3 miles per day. Be able to stand from a regular chair without use of UE's. Normalize pattern on stairs. Personal Factors Other Personal Factors That May Effect A fib on anti coagulation. HTN Therapy/Recovery . Obesity with BMI>40. PT-OP-C Subjective Start: 10/22/22 16:57 Freq: Status: Active Protocol: Document 11/01/22 14:16 AW (Rec: 11/01/22 16:04 AW [id number]) OP-PT Subjective Patient Comments Patient Comments Was sore after PT on Saturday but no increased pain. Was on her feet a lot yesterday and was tempted to just sit and rest last night but feared getting too stiff. PT-OP-D Balance Start: 10/22/22 16:57 Freq: Status: Active Protocol: Document 10/23/22 16:00 AW (Rec: 10/23/22 17:25 AW [id number]) Balance Tests Single Limb Standing Single Limb- Right able but with increased shear; <5 sec Single Limb- Left able but with increased shear; <3 sec PT-OP-F Manual Assessment Start: 10/22/22 16:57 Freq: Status: Active Protocol: Document 10/23/22 16:00 AW (Rec: 10/23/22 17:25 AW [id number]) Manual Assessments Soft Tissue Assessment Soft Tissue Mobility Assessment Tender to palpation posterior to greater trochanter and in distribution of glut med (L more affected than R). Sensitive to deep pressure at greater trochanters bilaterally. PT-OP-G Mobility & Gait Start: 10/22/22 16:57 Freq: Status: Active Protocol: Document 10/23/22 16:00 AW (Rec: 10/23/22 17:25 AW [id number]) OP Mobility Evaluation Transfers Sit to Stand Needs UE assist for standard height chair. Is able to sit<> stand from 20 surface with arms crossed but uses momentum . OP Gait Assessment Comments Gait Comments Pt walks with wide BENITEZ and slight genu valgus bilaterally . Feet are turned out. Good heel strike. Adequate step length. Pt tends to lean trunk toward stance leg, resulting in waddling pattern (pt's words). Stair Climbing Evaluation Comments Stair Climbing Comments Step-to patterning on 6 steps and definite need for rails. Can ascend/descend with unilateral rail. PT-OP-J Posture/Palpation/Skin Start: 10/22/22 16:57 Freq: Status: Active Protocol: Document 10/23/22 16:00 AW (Rec: 10/23/22 17:32 AW [id number]) Posture Evaluation Comments Posture Comments Decreased LLE weightbearing/ weight shifted R. Anterior pelvic tilt causes increase in lumbar lordosis. PT-OP-K Range of Motion Start: 10/22/22 16:57 Freq: Status: Active Protocol: Document 10/23/22 16:00 AW (Rec: 10/23/22 17:32 AW [id number]) Hip Goniometric Range of Motion Hip ROM Limitations Comments No significant retriction in flexion, abduction, rotation. Passive SLR is to 80 degrees bilaterally. Definite lack of extension ROM. Knee Goniometric Range of Motion Knee ROM Limitations Comments Slight tendency toward hyperextension. PT-OP-L Special Tests Start: 10/22/22 16:57 Freq: Status: Active Protocol: Document 10/23/22 16:00 AW (Rec: 10/23/22 17:32 AW [id number]) Special Tests Hip Special Tests Trendelenberg Test Results positive bilaterally (L more affected than R) Arsenio Test Results positive bilaterally Scour Test Test Results negative bilaterally Knee Special Tests Kenyon's Test Test Results negative bilaterally PT-OP-M Strength Start: 10/22/22 16:57 Freq: Status: Active Protocol: Document 10/23/22 16:00 AW (Rec: 10/23/22 17:32 AW [id number]) Hip Strength Hip Manual Muscle Testing Right Flexion (L2) 4- Good- Extension (S1) 3- Fair- Abduction 3+ Fair+ Left Flexion (L2) 4- Good- Extension (S1) 3- Fair- Abduction 3- Fair- Knee Strength Knee Manual Muscle Testing Bilateral Flexion (S2) 4+ Good+ Extension (L3) 5 Normal Ankle/Foot Strength Ankle and Foot Manual Muscle Testing Bilateral Dorsiflexion (L4) 5 Normal Plantarflexion (S1) 4- Good- Comments PF tested in standing. Pt unable to complete >3 single leg heel lifts PT-OP-Q Treatments Start: 10/22/22 16:57 Freq: Status: Active Protocol: Document 11/01/22 14:16 AW (Rec: 11/01/22 16:04 AW [id number]) Cardio Equipment Recumbent Stepper (Sci-Fit) Duration (Minutes) 6 Resistance 2 Seat Position 11 Therapeutic Exercises Supine Exercises bridge Supine Exercise Name bridge Reps/Minutes 5SH x 5 Comments HEP hooklying clam Supine Exercise Name hooklying clam Side bilateral Resistance TB2 at knees Reps/Minutes 20 SH x 10 Comments HEP Sidelying Exercises clamshell Sidelying Exercise Name clamshell Side bilateral Resistance AROM Reps/Minutes x10 Comments clinic only Sitting Exercises resisted PF Sitting Exercise Name resisted PF Side bilateral Resistance TB2 Reps/Minutes x15 stretching Sitting Exercise Name stretching - piriformis, HS Side bilateral Comments cued tall sitting, hip hinge Other Exercises sit to stand Other Exercise Name sit to stand - no UEs Equipment Used 19 tall black tx table Reps/Minutes 2x8 Comments HEP Gait Training Gait Activity A/P weight shifts Description A/P weight shifts Comments focus on push off and glute firing PT-OP-T Assessment and Plan Start: 10/22/22 16:57 Freq: Status: Active Protocol: Document 11/01/22 14:16 AW (Rec: 11/01/22 16:04 AW [id number]) Physical Therapy Assessment Goals Four Impairment stairs Litigation Paralegal Goal (LTG) Pt will ascend and descend 6 stairs with unilateral rail and reciprocating pattern without significant compensations. LTG Duration 01/21/23 Three Impairment walking tolerance Short Term Goal (STG) Pt will walk one mile in the community without increase in baseline pain STG Duration 12/04/22 Fdc Goal (LTG) Pt will walk 2 miles in the community without increase in baseline pain. LTG Duration 01/21/23 Two Impairment strength Short Term Goal (STG) Pt will complete 5 Time Sit to Stand from standard height chair without use of UE's in 13 seconds or less as a measure of improved strength STG Duration 12/04/22 Fdc Goal (LTG) Pt will improve bilateral hip extension and abduction strength to 4/5 or greater to improve gait mechanics LTG Duration 01/21/23 One Impairment HEP Short Term Goal (STG) Pt will be instructed in HEP for ROM, strength, and tissue extensibility to support therapy services provided in clinic STG Duration 12/04/22 Litigation Paralegal Goal (LTG) Pt will be independent with HEP to improve her strength for return to regular walking program LTG Duration 01/21/23 Assessment Summary Assessment Reviewed and added to HEP for independent performance. Initiated A/P weight shifting with emphasis on posterior chain push off. Physical Therapy Plan Frequency and Duration Frequency of Treatment 2x/Week Plan of Care Start Date 10/23/22 Plan of Care End Date 01/21/23 Therapeutic Interventions Therapeutic Interventions Balance Training,Gait Training ,Manual Therapy,Neuromuscular Re-education,Self-Care/Home Management,Soft Tissue Mobilization,Taping, Therapeutic Activities, Therapeutic Exercises Modalities Cold Pack/Ice Massage,Electric Stimulation,Hot Packs Next Visit Focus/Plan Next Note Type Treatment Note Next Visit Plan Continue with hip strength. Consider prone rotation mob
--- NOTE | 2022-11-08 17:05 | PT.OTN ---
Current Diagnoses Pain in right hip (11/08/22) Pain in left hip (11/08/22) Difficulty in walking, not elsewhere classified (11/08/22) Physical Therapy Treatment Note PT-OP-A Visit Information Start: 10/22/22 16:57 Freq: Status: Active Protocol: Document 11/08/22 14:10 AW (Rec: 11/08/22 17:05 AW [id number]) Out-Patient Physical Therapy Visit Information Visit Information Visit Type Treatment Note Visit Start Time 15:15 Visit Stop Time 16:00 Total Visit Minutes 45 Visit Number 4 Evaluation Information Evaluation Date 10/23/22 PT-OP-B Current Condition Start: 10/22/22 16:57 Freq: Status: Active Protocol: Document 10/23/22 16:00 AW (Rec: 10/22/22 17:03 AW [id number]) Current Condition History of Current Condition Onset Date 6+ months Current Complaints bilateral hip pain, stiffness, weakness History of Current Condition Pt reports bilateral hip pain for at least the past six months which is affecting her walking and exercise tolerance . The left hip hurts worse than the right. She can feel a clunk on the outside of her left hip when she is walking but it doesn't necessarily hurt. She feels extremely stiff after sitting for any length of time. She has been doing some [employer] classes but finds that her pain is limiting. 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 She feels she has been limping for years due to the foot pain and wonders if her limp has contributed to her hip pain. She notices she is catching her feet on stair treads and now climbs stairs with step-to pattern and railing. She has mild lumbar scoliosis so has had some back pain since a teenager. She is taking meloxicam occasionally . She has seen ortho. Recent x -rays showed no problem with the hip joints. Ortho says not a EARNEST candidate. Pt has had cortisone injection in left hip bursa ~1 year ago. Prior Treatments and Tests Imaging at [facility] - hip joints looked good. Spine - has had MRI - severe degenerative disc disease. Cortisone injection in left hip bursa ~1 year ago Treatment Goals Patient/Caregiver Goals Walk 2-3 miles per day. Be able to stand from a regular chair without use of UE's. Normalize pattern on stairs. Personal Factors Other Personal Factors That May Effect A fib on anti coagulation. HTN Therapy/Recovery . Obesity with BMI>40. PT-OP-C Subjective Start: 10/22/22 16:57 Freq: Status: Active Protocol: Document 11/08/22 14:10 AW (Rec: 11/08/22 17:05 AW [id number]) OP-PT Subjective Patient Comments Patient Comments Pt was in ED on 11/06 with a fib. They had to cardiovert. She feels ok today. Exercises are going ok but sit to stand might be making her sore. PT-OP-D Balance Start: 10/22/22 16:57 Freq: Status: Active Protocol: Document 10/23/22 16:00 AW (Rec: 10/23/22 17:25 AW [id number]) Balance Tests Single Limb Standing Single Limb- Right able but with increased shear; <5 sec Single Limb- Left able but with increased shear; <3 sec PT-OP-F Manual Assessment Start: 10/22/22 16:57 Freq: Status: Active Protocol: Document 10/23/22 16:00 AW (Rec: 10/23/22 17:25 AW [id number]) Manual Assessments Soft Tissue Assessment Soft Tissue Mobility Assessment Tender to palpation posterior to greater trochanter and in distribution of glut med (L more affected than R). Sensitive to deep pressure at greater trochanters bilaterally. PT-OP-G Mobility & Gait Start: 10/22/22 16:57 Freq: Status: Active Protocol: Document 10/23/22 16:00 AW (Rec: 10/23/22 17:25 AW [id number]) OP Mobility Evaluation Transfers Sit to Stand Needs UE assist for standard height chair. Is able to sit<> stand from 20 surface with arms crossed but uses momentum . OP Gait Assessment Comments Gait Comments Pt walks with wide BENITEZ and slight genu valgus bilaterally . Feet are turned out. Good heel strike. Adequate step length. Pt tends to lean trunk toward stance leg, resulting in waddling pattern (pt's words). Stair Climbing Evaluation Comments Stair Climbing Comments Step-to patterning on 6 steps and definite need for rails. Can ascend/descend with unilateral rail. PT-OP-J Posture/Palpation/Skin Start: 10/22/22 16:57 Freq: Status: Active Protocol: Document 10/23/22 16:00 AW (Rec: 10/23/22 17:32 AW [id number]) Posture Evaluation Comments Posture Comments Decreased LLE weightbearing/ weight shifted R. Anterior pelvic tilt causes increase in lumbar lordosis. PT-OP-K Range of Motion Start: 10/22/22 16:57 Freq: Status: Active Protocol: Document 10/23/22 16:00 AW (Rec: 10/23/22 17:32 AW [id number]) Hip Goniometric Range of Motion Hip ROM Limitations Comments No significant retriction in flexion, abduction, rotation. Passive SLR is to 80 degrees bilaterally. Definite lack of extension ROM. Knee Goniometric Range of Motion Knee ROM Limitations Comments Slight tendency toward hyperextension. PT-OP-L Special Tests Start: 10/22/22 16:57 Freq: Status: Active Protocol: Document 10/23/22 16:00 AW (Rec: 10/23/22 17:32 AW [id number]) Special Tests Hip Special Tests Trendelenberg Test Results positive bilaterally (L more affected than R) Arsenio Test Results positive bilaterally Scour Test Test Results negative bilaterally Knee Special Tests Kenyon's Test Test Results negative bilaterally PT-OP-M Strength Start: 10/22/22 16:57 Freq: Status: Active Protocol: Document 10/23/22 16:00 AW (Rec: 10/23/22 17:32 AW [id number]) Hip Strength Hip Manual Muscle Testing Right Flexion (L2) 4- Good- Extension (S1) 3- Fair- Abduction 3+ Fair+ Left Flexion (L2) 4- Good- Extension (S1) 3- Fair- Abduction 3- Fair- Knee Strength Knee Manual Muscle Testing Bilateral Flexion (S2) 4+ Good+ Extension (L3) 5 Normal Ankle/Foot Strength Ankle and Foot Manual Muscle Testing Bilateral Dorsiflexion (L4) 5 Normal Plantarflexion (S1) 4- Good- Comments PF tested in standing. Pt unable to complete >3 single leg heel lifts PT-OP-Q Treatments Start: 10/22/22 16:57 Freq: Status: Active Protocol: Document 11/08/22 14:10 AW (Rec: 11/08/22 17:05 AW [id number]) Cardio Equipment Recumbent Elliptical (Biodex) Duration (Minutes) 6 Resistance 2 Seat Position 9 Other repetitive motion slightly irritating to left hip Therapeutic Exercises Supine Exercises bridge Supine Exercise Name bridge Reps/Minutes 5SH x 15 Comments HEP Sidelying Exercises clamshell Sidelying Exercise Name clamshell Side bilateral Resistance TB1 Reps/Minutes x10 Comments HEP Sitting Exercises stretching Sitting Exercise Name stretching - calves in standing; hip rotators and HS in sitting Side bilateral Equipment Used ISAC, rail Comments cued tall sitting, hip hinge Standing Exercises step up Standing Exercise Name step up Side bilateral Comments quite difficult - painful and weak on LLE heel lift Standing Exercise Name heel lift Side bilateral Resistance bw Reps/Minutes 2x15 Comments HEP Other Exercises sit to stand Other Exercise Name sit to stand - no UEs Equipment Used 19 tall black tx table Reps/Minutes 2x8 Comments HEP review Gait Training Gait Activity stairs Description stairs Device Used 1-2 rails Level of Assistance SBA Surface 4 and 6 steps Comments noted less dependence on UE's this date Self-Care/Home Management Treatment Education Patient Education Home Exercise Program,Pain Management Other Education Discussed difference between delayed onset muscle soreness and pain. Encouraged pt to keep track of her exercise dosing. She admits she tends to zone out and might be overdoing. PT-OP-T Assessment and Plan Start: 10/22/22 16:57 Freq: Status: Active Protocol: Document 11/08/22 14:10 AW (Rec: 11/08/22 17:05 AW [id number]) Physical Therapy Assessment Goals Four Impairment stairs Money Order Clerk Goal (LTG) Pt will ascend and descend 6 stairs with unilateral rail and reciprocating pattern without significant compensations. LTG Duration 01/21/23 Three Impairment walking tolerance Short Term Goal (STG) Pt will walk one mile in the community without increase in baseline pain STG Duration 12/04/22 Money Order Clerk Goal (LTG) Pt will walk 2 miles in the community without increase in baseline pain. LTG Duration 01/21/23 Two Impairment strength Short Term Goal (STG) Pt will complete 5 Time Sit to Stand from standard height chair without use of UE's in 13 seconds or less as a measure of improved strength STG Duration 12/04/22 Money Order Clerk Goal (LTG) Pt will improve bilateral hip extension and abduction strength to 4/5 or greater to improve gait mechanics LTG Duration 01/21/23 One Impairment HEP Short Term Goal (STG) Pt will be instructed in HEP for ROM, strength, and tissue extensibility to support therapy services provided in clinic STG Duration 12/04/22 Usp Goal (LTG) Pt will be independent with HEP to improve her strength for return to regular walking program LTG Duration 01/21/23 Assessment Summary Assessment Trialed step ups today but pt has immediate pain response to LLE single leg activity so discontinued. Added heel lifts to HEP today to strengthen LE pushoff in gait. Physical Therapy Plan Frequency and Duration Frequency of Treatment 2x/Week Plan of Care Start Date 10/23/22 Plan of Care End Date 01/21/23 Therapeutic Interventions Therapeutic Interventions Balance Training,Gait Training ,Manual Therapy,Neuromuscular Re-education,Self-Care/Home Management,Soft Tissue Mobilization,Taping, Therapeutic Activities, Therapeutic Exercises Modalities Cold Pack/Ice Massage,Electric Stimulation,Hot Packs Next Visit Focus/Plan Next Note Type Treatment Note Next Visit Plan Continue with hip strength. Continue education on exercise dosing. Consider adding ankle inversion strength. Gait training for efficient push off
--- NOTE | 2022-11-16 17:34 | PT.OTN ---
Current Diagnoses Pain in right hip (11/15/22) Pain in left hip (11/15/22) Difficulty in walking, not elsewhere classified (11/15/22) Physical Therapy Treatment Note PT-OP-A Visit Information Start: 10/22/22 16:57 Freq: Status: Active Protocol: Document 11/15/22 14:30 TH (Rec: 11/16/22 17:12 TH [id number]) Out-Patient Physical Therapy Visit Information Visit Information Visit Type Treatment Note Visit Start Time 14:30 Visit Stop Time 15:15 Total Visit Minutes 45 Visit Number 5 Number of GEAR LAPPER Visits 0 PT-OP-B Current Condition Start: 10/22/22 16:57 Freq: Status: Active Protocol: Document 10/23/22 16:00 AW (Rec: 10/22/22 17:03 AW [id number]) Current Condition History of Current Condition Onset Date 6+ months Current Complaints bilateral hip pain, stiffness, weakness History of Current Condition Pt reports bilateral hip pain for at least the past six months which is affecting her walking and exercise tolerance . The left hip hurts worse than the right. She can feel a clunk on the outside of her left hip when she is walking but it doesn't necessarily hurt. She feels extremely stiff after sitting for any length of time. She has been doing some [employer] classes but finds that her pain is limiting. 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 She feels she has been limping for years due to the foot pain and wonders if her limp has contributed to her hip pain. She notices she is catching her feet on stair treads and now climbs stairs with step-to pattern and railing. She has mild lumbar scoliosis so has had some back pain since a teenager. She is taking meloxicam occasionally . She has seen ortho. Recent x -rays showed no problem with the hip joints. Ortho says not a EARNEST candidate. Pt has had cortisone injection in left hip bursa ~1 year ago. Prior Treatments and Tests Imaging at [facility] - hip joints looked good. Spine - has had MRI - severe degenerative disc disease. Cortisone injection in left hip bursa ~1 year ago Treatment Goals Patient/Caregiver Goals Walk 2-3 miles per day. Be able to stand from a regular chair without use of UE's. Normalize pattern on stairs. Personal Factors Other Personal Factors That May Effect A fib on anti coagulation. HTN Therapy/Recovery . Obesity with BMI>40. PT-OP-C Subjective Start: 10/22/22 16:57 Freq: Status: Active Protocol: Document 11/15/22 14:30 TH (Rec: 11/16/22 17:12 TH [id number]) OP-PT Subjective Patient Comments Patient Comments Pt reports pain has been improving since start of therapy Patient Reported Progress Improving PT-OP-D Balance Start: 10/22/22 16:57 Freq: Status: Active Protocol: Document 10/23/22 16:00 AW (Rec: 10/23/22 17:25 AW [id number]) Balance Tests Single Limb Standing Single Limb- Right able but with increased shear; <5 sec Single Limb- Left able but with increased shear; <3 sec PT-OP-F Manual Assessment Start: 10/22/22 16:57 Freq: Status: Active Protocol: Document 10/23/22 16:00 AW (Rec: 10/23/22 17:25 AW [id number]) Manual Assessments Soft Tissue Assessment Soft Tissue Mobility Assessment Tender to palpation posterior to greater trochanter and in distribution of glut med (L more affected than R). Sensitive to deep pressure at greater trochanters bilaterally. PT-OP-G Mobility & Gait Start: 10/22/22 16:57 Freq: Status: Active Protocol: Document 10/23/22 16:00 AW (Rec: 10/23/22 17:25 AW [id number]) OP Mobility Evaluation Transfers Sit to Stand Needs UE assist for standard height chair. Is able to sit<> stand from 20 surface with arms crossed but uses momentum . OP Gait Assessment Comments Gait Comments Pt walks with wide BENITEZ and slight genu valgus bilaterally . Feet are turned out. Good heel strike. Adequate step length. Pt tends to lean trunk toward stance leg, resulting in waddling pattern (pt's words). Stair Climbing Evaluation Comments Stair Climbing Comments Step-to patterning on 6 steps and definite need for rails. Can ascend/descend with unilateral rail. PT-OP-J Posture/Palpation/Skin Start: 10/22/22 16:57 Freq: Status: Active Protocol: Document 10/23/22 16:00 AW (Rec: 10/23/22 17:32 AW [id number]) Posture Evaluation Comments Posture Comments Decreased LLE weightbearing/ weight shifted R. Anterior pelvic tilt causes increase in lumbar lordosis. PT-OP-K Range of Motion Start: 10/22/22 16:57 Freq: Status: Active Protocol: Document 10/23/22 16:00 AW (Rec: 10/23/22 17:32 AW [id number]) Hip Goniometric Range of Motion Hip ROM Limitations Comments No significant retriction in flexion, abduction, rotation. Passive SLR is to 80 degrees bilaterally. Definite lack of extension ROM. Knee Goniometric Range of Motion Knee ROM Limitations Comments Slight tendency toward hyperextension. PT-OP-L Special Tests Start: 10/22/22 16:57 Freq: Status: Active Protocol: Document 10/23/22 16:00 AW (Rec: 10/23/22 17:32 AW [id number]) Special Tests Hip Special Tests Trendelenberg Test Results positive bilaterally (L more affected than R) Arsenio Test Results positive bilaterally Scour Test Test Results negative bilaterally Knee Special Tests Kenyon's Test Test Results negative bilaterally PT-OP-M Strength Start: 10/22/22 16:57 Freq: Status: Active Protocol: Document 10/23/22 16:00 AW (Rec: 10/23/22 17:32 AW [id number]) Hip Strength Hip Manual Muscle Testing Right Flexion (L2) 4- Good- Extension (S1) 3- Fair- Abduction 3+ Fair+ Left Flexion (L2) 4- Good- Extension (S1) 3- Fair- Abduction 3- Fair- Knee Strength Knee Manual Muscle Testing Bilateral Flexion (S2) 4+ Good+ Extension (L3) 5 Normal Ankle/Foot Strength Ankle and Foot Manual Muscle Testing Bilateral Dorsiflexion (L4) 5 Normal Plantarflexion (S1) 4- Good- Comments PF tested in standing. Pt unable to complete >3 single leg heel lifts PT-OP-Q Treatments Start: 10/22/22 16:57 Freq: Status: Active Protocol: Document 11/15/22 14:30 TH (Rec: 11/16/22 17:12 TH [id number]) Therapeutic Exercises Supine Exercises HEP Comments Added: Trigger point release psoas and tfl, hip flexor stretch off EOB Manual Therapy Treatment Manual Techniques Manual Body Position Supine Comments Right iliopsoas release Right long axis traction Right hip flexor stretch off EOB using massage roller to quads /tfl PT-OP-T Assessment and Plan Start: 10/22/22 16:57 Freq: Status: Active Protocol: Document 11/15/22 14:30 TH (Rec: 11/16/22 17:12 TH [id number]) Physical Therapy Assessment Goals Four Impairment stairs Mcfp Goal (LTG) Pt will ascend and descend 6 stairs with unilateral rail and reciprocating pattern without significant compensations. LTG Duration 01/21/23 Three Impairment walking tolerance Short Term Goal (STG) Pt will walk one mile in the community without increase in baseline pain STG Duration 12/04/22 [employer] Scoreboard Operator Goal (LTG) Pt will walk 2 miles in the community without increase in baseline pain. LTG Duration 01/21/23 Two Impairment strength Short Term Goal (STG) Pt will complete 5 Time Sit to Stand from standard height chair without use of UE's in 13 seconds or less as a measure of improved strength STG Duration 12/04/22 Mcfp Goal (LTG) Pt will improve bilateral hip extension and abduction strength to 4/5 or greater to improve gait mechanics LTG Duration 01/21/23 One Impairment HEP Short Term Goal (STG) Pt will be instructed in HEP for ROM, strength, and tissue extensibility to support therapy services provided in clinic STG Duration 12/04/22 Mcfp Goal (LTG) Pt will be independent with HEP to improve her strength for return to regular walking program LTG Duration 01/21/23 Assessment Summary Assessment Pt is making steady progress as per pt account of improving r hip strength. Noted right hip ant rot. Hips level after treatement. Physical Therapy Plan Frequency and Duration Frequency of Treatment 2x/Week Plan of Care Start Date 10/23/22 Plan of Care End Date 01/21/23
--- NOTE | 2022-11-29 16:36 | PT.OTN ---
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 The left hip hurts worse than the right. She can feel a clunk on the outside of her left hip when she is walking but it doesn't necessarily hurt. She feels extremely stiff after sitting for any length of time. She has been doing some [employer] classes but finds that her pain is limiting. 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 She feels she has been limping for years due to the foot pain and wonders if her limp has contributed to her hip pain. She notices she is catching her feet on stair treads and now climbs stairs with step-to pattern and railing. She has mild lumbar scoliosis so has had some back pain since a teenager. She is taking meloxicam occasionally . She has seen ortho. Recent x -rays showed no problem with the hip joints. Ortho says not a EARNEST candidate. Pt has had cortisone injection in left hip bursa ~1 year ago. Prior Treatments and Tests Imaging at [facility] - hip joints looked good. Spine - has had MRI - severe degenerative disc disease. Cortisone injection in left hip bursa ~1 year ago Treatment Goals Patient/Caregiver Goals Walk 2-3 miles per day. Be able to stand from a regular chair without use of UE's. Normalize pattern on stairs. Personal Factors Other Personal Factors That May Effect A fib on anti coagulation. HTN Therapy/Recovery . Obesity with BMI>40. PT-OP-C Subjective Start: 10/22/22 16:57 Freq: Status: Active Protocol: Document 11/29/22 14:30 TH (Rec: 11/29/22 16:36 TH [id number]) OP-PT Subjective Patient Comments Patient Comments Pt states pain and strength progressively improving. PT-OP-D Balance Start: 10/22/22 16:57 Freq: Status: Active Protocol: Document 10/23/22 16:00 AW (Rec: 10/23/22 17:25 AW [id number]) Balance Tests Single Limb Standing Single Limb- Right able but with increased shear; <5 sec Single Limb- Left able but with increased shear; <3 sec PT-OP-F Manual Assessment Start: 10/22/22 16:57 Freq: Status: Active Protocol: Document 10/23/22 16:00 AW (Rec: 10/23/22 17:25 AW [id number]) Manual Assessments Soft Tissue Assessment Soft Tissue Mobility Assessment Tender to palpation posterior to greater trochanter and in distribution of glut med (L more affected than R). Sensitive to deep pressure at greater trochanters bilaterally. PT-OP-G Mobility & Gait Start: 10/22/22 16:57 Freq: Status: Active Protocol: Document 10/23/22 16:00 AW (Rec: 10/23/22 17:25 AW [id number]) OP Mobility Evaluation Transfers Sit to Stand Needs UE assist for standard height chair. Is able to sit<> stand from 20 surface with arms crossed but uses momentum . OP Gait Assessment Comments Gait Comments Pt walks with wide BENITEZ and slight genu valgus bilaterally . Feet are turned out. Good heel strike. Adequate step length. Pt tends to lean trunk toward stance leg, resulting in waddling pattern (pt's words). Stair Climbing Evaluation Comments Stair Climbing Comments Step-to patterning on 6 steps and definite need for rails. Can ascend/descend with unilateral rail. PT-OP-J Posture/Palpation/Skin Start: 10/22/22 16:57 Freq: Status: Active Protocol: Document 10/23/22 16:00 AW (Rec: 10/23/22 17:32 AW [id number]) Posture Evaluation Comments Posture Comments Decreased LLE weightbearing/ weight shifted R. Anterior pelvic tilt causes increase in lumbar lordosis. PT-OP-K Range of Motion Start: 10/22/22 16:57 Freq: Status: Active Protocol: Document 10/23/22 16:00 AW (Rec: 10/23/22 17:32 AW [id number]) Hip Goniometric Range of Motion Hip ROM Limitations Comments No significant retriction in flexion, abduction, rotation. Passive SLR is to 80 degrees bilaterally. Definite lack of extension ROM. Knee Goniometric Range of Motion Knee ROM Limitations Comments Slight tendency toward hyperextension. PT-OP-L Special Tests Start: 10/22/22 16:57 Freq: Status: Active Protocol: Document 10/23/22 16:00 AW (Rec: 10/23/22 17:32 AW [id number]) Special Tests Hip Special Tests Trendelenberg Test Results positive bilaterally (L more affected than R) Arsenio Test Results positive bilaterally Scour Test Test Results negative bilaterally Knee Special Tests Kenyon's Test Test Results negative bilaterally PT-OP-M Strength Start: 10/22/22 16:57 Freq: Status: Active Protocol: Document 10/23/22 16:00 AW (Rec: 10/23/22 17:32 AW [id number]) Hip Strength Hip Manual Muscle Testing Right Flexion (L2) 4- Good- Extension (S1) 3- Fair- Abduction 3+ Fair+ Left Flexion (L2) 4- Good- Extension (S1) 3- Fair- Abduction 3- Fair- Knee Strength Knee Manual Muscle Testing Bilateral Flexion (S2) 4+ Good+ Extension (L3) 5 Normal Ankle/Foot Strength Ankle and Foot Manual Muscle Testing Bilateral Dorsiflexion (L4) 5 Normal Plantarflexion (S1) 4- Good- Comments PF tested in standing. Pt unable to complete >3 single leg heel lifts PT-OP-Q Treatments Start: 10/22/22 16:57 Freq: Status: Active Protocol: Document 11/29/22 14:30 TH (Rec: 11/29/22 16:36 TH [id number]) Therapeutic Exercises Other Exercises hip flexor stretch l Reps/Minutes 1 x 3 hold 30 sec Comments leg on chair holding onto counter top wall squat with hip abd. Comments x 5 with 10-60 sec holds Manual Therapy Treatment Manual Techniques long axis traction Comments R LE iliopsoas release Comments using mini medicine ball in prone tfl release on same side hip flexor stretch Comments hip flexor stretch off EOB with massage roller to quads/ tfl. Self-Care/Home Management Treatment Education Patient Education Home Exercise Program Other Education Access Code: [email or web address] URL: [email or web address] Date: 11/29/2022 Prepared by: Tanya Beach Exercises Wall Squat with Resistance Loop - 1 x daily - 7 x weekly - 1 sets - 5-8 reps - 10-60 sec hold Standing Hip Flexor Stretch with Foot Elevated - 1 x daily - 7 x weekly - 1 sets - 3-5 reps - 30 sec hold PT-OP-T Assessment and Plan Start: 10/22/22 16:57 Freq: Status: Active Protocol: Document 11/29/22 14:30 TH (Rec: 11/29/22 16:36 TH [id number]) Physical Therapy Assessment Goals Four Impairment stairs Reactor Service Operator Goal (LTG) Pt will ascend and descend 6 stairs with unilateral rail and reciprocating pattern without significant compensations. LTG Duration 01/21/23 Three Impairment walking tolerance Short Term Goal (STG) Pt will walk one mile in the community without increase in baseline pain STG Duration 12/04/22 Reactor Service Operator Goal (LTG) Pt will walk 2 miles in the community without increase in baseline pain. LTG Duration 01/21/23 Two Impairment strength Short Term Goal (STG) Pt will complete 5 Time Sit to Stand from standard height chair without use of UE's in 13 seconds or less as a measure of improved strength STG Duration 12/04/22 [facility]dc Goal (LTG) Pt will improve bilateral hip extension and abduction strength to 4/5 or greater to improve gait mechanics LTG Duration 01/21/23 One Impairment HEP Short Term Goal (STG) Pt will be instructed in HEP for ROM, strength, and tissue extensibility to support therapy services provided in clinic STG Duration 12/04/22 Reactor Service Operator Goal (LTG) Pt will be independent with HEP to improve her strength for return to regular walking program LTG Duration 01/21/23 Physical Therapy Plan Frequency and Duration Frequency of Treatment 2x/Week Plan of Care Start Date 10/23/22 Plan of Care End Date 01/21/23 Therapeutic Interventions Therapeutic Interventions Balance Training,Gait Training ,Manual Therapy,Neuromuscular Re-education,Self-Care/Home Management,Soft Tissue Mobilization,Taping, Therapeutic Activities, Therapeutic Exercises Modalities Cold Pack/Ice Massage,Electric Stimulation,Hot Packs Next Visit Focus/Plan Next Note Type Treatment Note Next Visit Plan Work on leveling hips to improve leg length discrepancy ( r shorter than left). Continue with strengthening LEs. -supported modified single leg squat ( toe down opposite leg ) mini lunges with hip/knee alignment/ support if needed.
--- NOTE | 2022-12-06 16:26 | PT.OTN ---
Current Diagnoses Pain in right hip (12/06/22) Pain in left hip (12/06/22) Difficulty in walking, not elsewhere classified (12/06/22) Physical Therapy Treatment Note PT-OP-A Visit Information Start: 10/22/22 16:57 Freq: Status: Active Protocol: Document 12/06/22 16:18 TH (Rec: 12/06/22 16:25 TH [id number]) Out-Patient Physical Therapy Visit Information Visit Information Visit Start Time 14:35 Visit Stop Time 15:20 Total Visit Minutes 45 Visit Number 7 Number of GENERATION ENGINEERING TECHNOLOGIST Visits 0 PT-OP-B Current Condition Start: 10/22/22 16:57 Freq: Status: Active Protocol: Document 10/23/22 16:00 AW (Rec: 10/22/22 17:03 AW [id number]) Current Condition History of Current Condition Onset Date 6+ months Current Complaints bilateral hip pain, stiffness, weakness History of Current Condition Pt reports bilateral hip pain for at least the past six months which is affecting her walking and exercise tolerance . The left hip hurts worse than the right. She can feel a clunk on the outside of her left hip when she is walking but it doesn't necessarily hurt. She feels extremely stiff after sitting for any length of time. She has been doing some [employer] classes but finds that her pain is limiting. 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 She feels she has been limping for years due to the foot pain and wonders if her limp has contributed to her hip pain. She notices she is catching her feet on stair treads and now climbs stairs with step-to pattern and railing. She has mild lumbar scoliosis so has had some back pain since a teenager. She is taking meloxicam occasionally . She has seen ortho. Recent x -rays showed no problem with the hip joints. Ortho says not a EARNEST candidate. Pt has had cortisone injection in left hip bursa ~1 year ago. Prior Treatments and Tests Imaging at [facility] - hip joints looked good. Spine - has had MRI - severe degenerative disc disease. Cortisone injection in left hip bursa ~1 year ago Treatment Goals Patient/Caregiver Goals Walk 2-3 miles per day. Be able to stand from a regular chair without use of UE's. Normalize pattern on stairs. Personal Factors Other Personal Factors That May Effect A fib on anti coagulation. HTN Therapy/Recovery . Obesity with BMI>40. PT-OP-C Subjective Start: 10/22/22 16:57 Freq: Status: Active Protocol: Document 12/06/22 16:18 TH (Rec: 12/06/22 16:25 TH [id number]) OP-PT Subjective Patient Comments Patient Comments Pt. reports right foot has been hurting and therefore she has been limping more than normal. PT-OP-D Balance Start: 10/22/22 16:57 Freq: Status: Active Protocol: Document 10/23/22 16:00 AW (Rec: 10/23/22 17:25 AW [id number]) Balance Tests Single Limb Standing Single Limb- Right able but with increased shear; <5 sec Single Limb- Left able but with increased shear; <3 sec PT-OP-F Manual Assessment Start: 10/22/22 16:57 Freq: Status: Active Protocol: Document 10/23/22 16:00 AW (Rec: 10/23/22 17:25 AW [id number]) Manual Assessments Soft Tissue Assessment Soft Tissue Mobility Assessment Tender to palpation posterior to greater trochanter and in distribution of glut med (L more affected than R). Sensitive to deep pressure at greater trochanters bilaterally. PT-OP-G Mobility & Gait Start: 10/22/22 16:57 Freq: Status: Active Protocol: Document 10/23/22 16:00 AW (Rec: 10/23/22 17:25 AW [id number]) OP Mobility Evaluation Transfers Sit to Stand Needs UE assist for standard height chair. Is able to sit<> stand from 20 surface with arms crossed but uses momentum . OP Gait Assessment Comments Gait Comments Pt walks with wide BENITEZ and slight genu valgus bilaterally . Feet are turned out. Good heel strike. Adequate step length. Pt tends to lean trunk toward stance leg, resulting in waddling pattern (pt's words). Stair Climbing Evaluation Comments Stair Climbing Comments Step-to patterning on 6 steps and definite need for rails. Can ascend/descend with unilateral rail. PT-OP-J Posture/Palpation/Skin Start: 10/22/22 16:57 Freq: Status: Active Protocol: Document 10/23/22 16:00 AW (Rec: 10/23/22 17:32 AW [id number]) Posture Evaluation Comments Posture Comments Decreased LLE weightbearing/ weight shifted R. Anterior pelvic tilt causes increase in lumbar lordosis. PT-OP-K Range of Motion Start: 10/22/22 16:57 Freq: Status: Active Protocol: Document 10/23/22 16:00 AW (Rec: 10/23/22 17:32 AW [id number]) Hip Goniometric Range of Motion Hip ROM Limitations Comments No significant retriction in flexion, abduction, rotation. Passive SLR is to 80 degrees bilaterally. Definite lack of extension ROM. Knee Goniometric Range of Motion Knee ROM Limitations Comments Slight tendency toward hyperextension. PT-OP-L Special Tests Start: 10/22/22 16:57 Freq: Status: Active Protocol: Document 10/23/22 16:00 AW (Rec: 10/23/22 17:32 AW [id number]) Special Tests Hip Special Tests Trendelenberg Test Results positive bilaterally (L more affected than R) Arsenio Test Results positive bilaterally Scour Test Test Results negative bilaterally Knee Special Tests Kenyon's Test Test Results negative bilaterally PT-OP-M Strength Start: 10/22/22 16:57 Freq: Status: Active Protocol: Document 10/23/22 16:00 AW (Rec: 10/23/22 17:32 AW [id number]) Hip Strength Hip Manual Muscle Testing Right Flexion (L2) 4- Good- Extension (S1) 3- Fair- Abduction 3+ Fair+ Left Flexion (L2) 4- Good- Extension (S1) 3- Fair- Abduction 3- Fair- Knee Strength Knee Manual Muscle Testing Bilateral Flexion (S2) 4+ Good+ Extension (L3) 5 Normal Ankle/Foot Strength Ankle and Foot Manual Muscle Testing Bilateral Dorsiflexion (L4) 5 Normal Plantarflexion (S1) 4- Good- Comments PF tested in standing. Pt unable to complete >3 single leg heel lifts PT-OP-Q Treatments Start: 10/22/22 16:57 Freq: Status: Active Protocol: Document 12/06/22 16:18 TH (Rec: 12/06/22 16:25 TH [id number]) Therapeutic Exercises Supine Exercises bridge Comments bridge with add. Sidelying Exercises clamshell Comments isometric clamshell 2 x 10 bilat. Manual Therapy Treatment Manual Techniques IASTM Comments IASTM left tfl/IT band PT-OP-R Modalities Start: 10/22/22 16:57 Freq: Status: Active Protocol: Document 12/06/22 16:18 TH (Rec: 12/06/22 16:25 TH [id number]) Ultrasound Therapy Treatment left tfl Comments 2MHz 10 % left tfl/ trochanteric bursa PT-OP-T Assessment and Plan Start: 10/22/22 16:57 Freq: Status: Active Protocol: Document 12/06/22 16:18 TH (Rec: 12/06/22 16:25 TH [id number]) Physical Therapy Assessment Goals Four Impairment stairs Nursing Home Goal (LTG) Pt will ascend and descend 6 stairs with unilateral rail and reciprocating pattern without significant compensations. LTG Duration 01/21/23 Three Impairment walking tolerance Short Term Goal (STG) Pt will walk one mile in the community without increase in baseline pain STG Duration 12/04/22 Nursing Home Goal (LTG) Pt will walk 2 miles in the community without increase in baseline pain. LTG Duration 01/21/23 Two Impairment strength Short Term Goal (STG) Pt will complete 5 Time Sit to Stand from standard height chair without use of UE's in 13 seconds or less as a measure of improved strength STG Duration 12/04/22 Nursing Home Goal (LTG) Pt will improve bilateral hip extension and abduction strength to 4/5 or greater to improve gait mechanics LTG Duration 01/21/23 One Impairment HEP Short Term Goal (STG) Pt will be instructed in HEP for ROM, strength, and tissue extensibility to support therapy services provided in clinic STG Duration 12/04/22 Nursing Home Goal (LTG) Pt will be independent with HEP to improve her strength for return to regular walking program LTG Duration 01/21/23 Assessment Summary Assessment Pt had been making steady progress until r foot pain flare up. Pt continues to work on hip stretches to help level hips. Uneven hip level is leading to hip, knee and foot pain. Will assess response to manual next visit. Physical Therapy Plan Frequency and Duration Frequency of Treatment 2x/Week Plan of Care Start Date 10/23/22 Plan of Care End Date 01/21/23 Therapeutic Interventions Therapeutic Interventions Balance Training,Gait Training ,Manual Therapy,Neuromuscular Re-education,Self-Care/Home Management,Soft Tissue Mobilization,Taping, Therapeutic Activities, Therapeutic Exercises Modalities Cold Pack/Ice Massage,Electric Stimulation,Hot Packs
--- NOTE | 2022-12-27 16:19 | PT.OTN ---
Current Diagnoses Pain in right hip (12/27/22) Pain in left hip (12/27/22) Difficulty in walking, not elsewhere classified (12/27/22) Physical Therapy Treatment Note PT-OP-A Visit Information Start: 10/22/22 16:57 Freq: Status: Active Protocol: Document 12/27/22 15:22 TH (Rec: 12/27/22 16:19 TH [id number]) Out-Patient Physical Therapy Visit Information Visit Information Visit Type Treatment Note Visit Start Time 15:15 Visit Stop Time 16:00 Total Visit Minutes 45 Visit Number 8 Number of PLATFORM BUILDER Visits 0 PT-OP-B Current Condition Start: 10/22/22 16:57 Freq: Status: Active Protocol: Document 10/23/22 16:00 AW (Rec: 10/22/22 17:03 AW [id number]) Current Condition History of Current Condition Onset Date 6+ months Current Complaints bilateral hip pain, stiffness, weakness History of Current Condition Pt reports bilateral hip pain for at least the past six months which is affecting her walking and exercise tolerance . The left hip hurts worse than the right. She can feel a clunk on the outside of her left hip when she is walking but it doesn't necessarily hurt. She feels extremely stiff after sitting for any length of time. She has been doing some [employer] classes but finds that her pain is limiting. 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 She feels she has been limping for years due to the foot pain and wonders if her limp has contributed to her hip pain. She notices she is catching her feet on stair treads and now climbs stairs with step-to pattern and railing. She has mild lumbar scoliosis so has had some back pain since a teenager. She is taking meloxicam occasionally . She has seen ortho. Recent x -rays showed no problem with the hip joints. Ortho says not a EARNEST candidate. Pt has had cortisone injection in left hip bursa ~1 year ago. Prior Treatments and Tests Imaging at [facility] - hip joints looked good. Spine - has had MRI - severe degenerative disc disease. Cortisone injection in left hip bursa ~1 year ago Treatment Goals Patient/Caregiver Goals Walk 2-3 miles per day. Be able to stand from a regular chair without use of UE's. Normalize pattern on stairs. Personal Factors Other Personal Factors That May Effect A fib on anti coagulation. HTN Therapy/Recovery . Obesity with BMI>40. PT-OP-C Subjective Start: 10/22/22 16:57 Freq: Status: Active Protocol: Document 12/27/22 15:22 TH (Rec: 12/27/22 16:19 TH [id number]) OP-PT Subjective Patient Comments Patient Comments Pt after three week wait to get back into PT post missing an appt. Pt states she feels LLE /hip is getting stronger. Pain has improved however she is noticing left gluteus pain recently. PT-OP-D Balance Start: 10/22/22 16:57 Freq: Status: Active Protocol: Document 10/23/22 16:00 AW (Rec: 10/23/22 17:25 AW [id number]) Balance Tests Single Limb Standing Single Limb- Right able but with increased shear; <5 sec Single Limb- Left able but with increased shear; <3 sec PT-OP-F Manual Assessment Start: 10/22/22 16:57 Freq: Status: Active Protocol: Document 10/23/22 16:00 AW (Rec: 10/23/22 17:25 AW [id number]) Manual Assessments Soft Tissue Assessment Soft Tissue Mobility Assessment Tender to palpation posterior to greater trochanter and in distribution of glut med (L more affected than R). Sensitive to deep pressure at greater trochanters bilaterally. PT-OP-G Mobility & Gait Start: 10/22/22 16:57 Freq: Status: Active Protocol: Document 10/23/22 16:00 AW (Rec: 10/23/22 17:25 AW [id number]) OP Mobility Evaluation Transfers Sit to Stand Needs UE assist for standard height chair. Is able to sit<> stand from 20 surface with arms crossed but uses momentum . OP Gait Assessment Comments Gait Comments Pt walks with wide BENITEZ and slight genu valgus bilaterally . Feet are turned out. Good heel strike. Adequate step length. Pt tends to lean trunk toward stance leg, resulting in waddling pattern (pt's words). Stair Climbing Evaluation Comments Stair Climbing Comments Step-to patterning on 6 steps and definite need for rails. Can ascend/descend with unilateral rail. PT-OP-J Posture/Palpation/Skin Start: 10/22/22 16:57 Freq: Status: Active Protocol: Document 10/23/22 16:00 AW (Rec: 10/23/22 17:32 AW [id number]) Posture Evaluation Comments Posture Comments Decreased LLE weightbearing/ weight shifted R. Anterior pelvic tilt causes increase in lumbar lordosis. PT-OP-K Range of Motion Start: 10/22/22 16:57 Freq: Status: Active Protocol: Document 10/23/22 16:00 AW (Rec: 10/23/22 17:32 AW [id number]) Hip Goniometric Range of Motion Hip ROM Limitations Comments No significant retriction in flexion, abduction, rotation. Passive SLR is to 80 degrees bilaterally. Definite lack of extension ROM. Knee Goniometric Range of Motion Knee ROM Limitations Comments Slight tendency toward hyperextension. PT-OP-L Special Tests Start: 10/22/22 16:57 Freq: Status: Active Protocol: Document 10/23/22 16:00 AW (Rec: 10/23/22 17:32 AW [id number]) Special Tests Hip Special Tests Trendelenberg Test Results positive bilaterally (L more affected than R) Arsenio Test Results positive bilaterally Scour Test Test Results negative bilaterally Knee Special Tests Kenyon's Test Test Results negative bilaterally PT-OP-M Strength Start: 10/22/22 16:57 Freq: Status: Active Protocol: Document 10/23/22 16:00 AW (Rec: 10/23/22 17:32 AW [id number]) Hip Strength Hip Manual Muscle Testing Right Flexion (L2) 4- Good- Extension (S1) 3- Fair- Abduction 3+ Fair+ Left Flexion (L2) 4- Good- Extension (S1) 3- Fair- Abduction 3- Fair- Knee Strength Knee Manual Muscle Testing Bilateral Flexion (S2) 4+ Good+ Extension (L3) 5 Normal Ankle/Foot Strength Ankle and Foot Manual Muscle Testing Bilateral Dorsiflexion (L4) 5 Normal Plantarflexion (S1) 4- Good- Comments PF tested in standing. Pt unable to complete >3 single leg heel lifts PT-OP-Q Treatments Start: 10/22/22 16:57 Freq: Status: Active Protocol: Document 12/27/22 15:22 TH (Rec: 12/27/22 16:19 TH [id number]) Therapeutic Exercises Supine Exercises bridge Comments bridge with hip adduction 2 x 10 Sidelying Exercises clamshell Comments 2 x 10 isometric/glut med.TA activ. Other Exercises glut.release Comments using tennis ball single leg stance Comments 6 x bilat. 10 sec holds with focus on midline/level hips wall squat with hip abd. Comments 4 x 10 sec holds Self-Care/Home Management Treatment Education Patient Education Home Exercise Program Other Education Access Code: [email or web address] URL: [email or web address] Date: 12/27/2022 Prepared by: Tanya Beach Exercises - Wall Squat with Resistance Loop - 1 x daily - 7 x weekly - 1 sets - 5-8 reps - 10-60 sec hold - Standing Hip Flexor Stretch with Foot Elevated - 1 x daily - 7 x weekly - 1 sets - 3-5 reps - 30 sec hold - Supine Bridge - 1 x daily - 7 x weekly - 1-2 sets - 10 reps - Hooklying Isometric Clamshell - 1 x daily - 7 x weekly - 2 sets - 10 reps - Single Leg Stance with Support - 1 x daily - 7 x weekly - 1 sets - 3-5 reps - 10-30 sec hold PT-OP-R Modalities Start: 10/22/22 16:57 Freq: Status: Active Protocol: Document 12/06/22 16:18 TH (Rec: 12/06/22 16:25 TH [id number]) Ultrasound Therapy Treatment left tfl Comments 2MHz 10 % left tfl/ trochanteric bursa PT-OP-T Assessment and Plan Start: 10/22/22 16:57 Freq: Status: Active Protocol: Document 12/27/22 15:22 TH (Rec: 12/27/22 16:19 TH [id number]) Physical Therapy Assessment Goals Four Impairment stairs Detention Goal (LTG) Pt will ascend and descend 6 stairs with unilateral rail and reciprocating pattern without significant compensations. LTG Duration 01/21/23 Three Impairment walking tolerance Short Term Goal (STG) Pt will walk one mile in the community without increase in baseline pain STG Duration 12/04/22 Computer Hardware Developer Goal (LTG) Pt will walk 2 miles in the community without increase in baseline pain. LTG Duration 01/21/23 Two Impairment strength Short Term Goal (STG) Pt will complete 5 Time Sit to Stand from standard height chair without use of UE's in 13 seconds or less as a measure of improved strength STG Duration 12/04/22 Computer Hardware Developer Goal (LTG) Pt will improve bilateral hip extension and abduction strength to 4/5 or greater to improve gait mechanics LTG Duration 01/21/23 One Impairment HEP Short Term Goal (STG) Pt will be instructed in HEP for ROM, strength, and tissue extensibility to support therapy services provided in clinic STG Duration 12/04/22 Detention Goal (LTG) Pt will be independent with HEP to improve her strength for return to regular walking program LTG Duration 01/21/23 Assessment Summary Assessment Noted hips are level. Pt is making steady progress despite missing 3 weeks of PT. She has been working on HEP at home. Physical Therapy Plan Frequency and Duration Frequency of Treatment 2x/Week Plan of Care Start Date 10/23/22 Plan of Care End Date 01/21/23
--- NOTE | 2023-01-03 15:19 | PT.OPDS ---
Current Diagnoses Pain in right hip (01/03/23) Pain in left hip (01/03/23) Difficulty in walking, not elsewhere classified (01/03/23) Visit Care Team Role Provider Type BRANT Montez Attending Provider Advanced Cloth Winder Machine Operator Family Provider Primary Care Provider Referring Provider Specialty: Family Practice Address: [address] [place] [address], [address] Email: [email or web address] Visit Number Visit Number 9 Discharge Summary PT-OP-B Current Condition Start: 10/22/22 16:57 Freq: Status: Active Protocol: Document 10/23/22 16:00 AW (Rec: 10/22/22 17:03 AW [id number]) Current Condition History of Current Condition Onset Date 6+ months Current Complaints bilateral hip pain, stiffness, weakness History of Current Condition Pt reports bilateral hip pain for at least the past six months which is affecting her walking and exercise tolerance . The left hip hurts worse than the right. She can feel a clunk on the outside of her left hip when she is walking but it doesn't necessarily hurt. She feels extremely stiff after sitting for any length of time. She has been doing some [employer] classes but finds that her pain is limiting. 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 She feels she has been limping for years due to the foot pain and wonders if her limp has contributed to her hip pain. She notices she is catching her feet on stair treads and now climbs stairs with step-to pattern and railing. She has mild lumbar scoliosis so has had some back pain since a teenager. She is taking meloxicam occasionally . She has seen ortho. Recent x -rays showed no problem with the hip joints. Ortho says not a EARNEST candidate. Pt has had cortisone injection in left hip bursa ~1 year ago. Prior Treatments and Tests Imaging at [facility] - hip joints looked good. Spine - has had MRI - severe degenerative disc disease. Cortisone injection in left hip bursa ~1 year ago Treatment Goals Patient/Caregiver Goals Walk 2-3 miles per day. Be able to stand from a regular chair without use of UE's. Normalize pattern on stairs. Personal Factors Other Personal Factors That May Effect A fib on anti coagulation. HTN Therapy/Recovery . Obesity with BMI>40. PT-OP-C Subjective Start: 10/22/22 16:57 Freq: Status: Active Protocol: Document 01/03/23 14:38 TH (Rec: 01/03/23 15:18 TH [id number]) OP-PT Subjective Patient Comments Patient Comments Pt reports she has been feeling much more steady and less pain now earnest she has been doing the HEP more regularly and correctly. PT-OP-D Balance Start: 10/22/22 16:57 Freq: Status: Active Protocol: Document 10/23/22 16:00 AW (Rec: 10/23/22 17:25 AW [id number]) Balance Tests Single Limb Standing Single Limb- Right able but with increased shear; <5 sec Single Limb- Left able but with increased shear; <3 sec PT-OP-F Manual Assessment Start: 10/22/22 16:57 Freq: Status: Active Protocol: Document 10/23/22 16:00 AW (Rec: 10/23/22 17:25 AW [id number]) Manual Assessments Soft Tissue Assessment Soft Tissue Mobility Assessment Tender to palpation posterior to greater trochanter and in distribution of glut med (L more affected than R). Sensitive to deep pressure at greater trochanters bilaterally. PT-OP-G Mobility & Gait Start: 10/22/22 16:57 Freq: Status: Active Protocol: Document 10/23/22 16:00 AW (Rec: 10/23/22 17:25 AW [id number]) OP Mobility Evaluation Transfers Sit to Stand Needs UE assist for standard height chair. Is able to sit<> stand from 20 surface with arms crossed but uses momentum . OP Gait Assessment Comments Gait Comments Pt walks with wide BENITEZ and slight genu valgus bilaterally . Feet are turned out. Good heel strike. Adequate step length. Pt tends to lean trunk toward stance leg, resulting in waddling pattern (pt's words). Stair Climbing Evaluation Comments Stair Climbing Comments Step-to patterning on 6 steps and definite need for rails. Can ascend/descend with unilateral rail. PT-OP-J Posture/Palpation/Skin Start: 10/22/22 16:57 Freq: Status: Active Protocol: Document 10/23/22 16:00 AW (Rec: 10/23/22 17:32 AW [id number]) Posture Evaluation Comments Posture Comments Decreased LLE weightbearing/ weight shifted R. Anterior pelvic tilt causes increase in lumbar lordosis. PT-OP-K Range of Motion Start: 10/22/22 16:57 Freq: Status: Active Protocol: Document 10/23/22 16:00 AW (Rec: 10/23/22 17:32 AW [id number]) Hip Goniometric Range of Motion Hip ROM Limitations Comments No significant retriction in flexion, abduction, rotation. Passive SLR is to 80 degrees bilaterally. Definite lack of extension ROM. Knee Goniometric Range of Motion Knee ROM Limitations Comments Slight tendency toward hyperextension. PT-OP-L Special Tests Start: 10/22/22 16:57 Freq: Status: Active Protocol: Document 10/23/22 16:00 AW (Rec: 10/23/22 17:32 AW [id number]) Special Tests Hip Special Tests Trendelenberg Test Results positive bilaterally (L more affected than R) Arsenio Test Results positive bilaterally Scour Test Test Results negative bilaterally Knee Special Tests Kenyon's Test Test Results negative bilaterally PT-OP-M Strength Start: 10/22/22 16:57 Freq: Status: Active Protocol: Document 10/23/22 16:00 AW (Rec: 10/23/22 17:32 AW [id number]) Hip Strength Hip Manual Muscle Testing Right Flexion (L2) 4- Good- Extension (S1) 3- Fair- Abduction 3+ Fair+ Left Flexion (L2) 4- Good- Extension (S1) 3- Fair- Abduction 3- Fair- Knee Strength Knee Manual Muscle Testing Bilateral Flexion (S2) 4+ Good+ Extension (L3) 5 Normal Ankle/Foot Strength Ankle and Foot Manual Muscle Testing Bilateral Dorsiflexion (L4) 5 Normal Plantarflexion (S1) 4- Good- Comments PF tested in standing. Pt unable to complete >3 single leg heel lifts PT-OP-T Assessment and Plan Start: 10/22/22 16:57 Freq: Status: Active Protocol: Document 01/03/23 14:38 TH (Rec: 01/03/23 15:18 TH [id number]) Physical Therapy Assessment Goals Four Impairment stairs Halfway Goal (LTG) Pt will ascend and descend 6 stairs with unilateral rail and reciprocating pattern without significant compensations. LTG Duration 4/17/23 MET Three Impairment walking tolerance Short Term Goal (STG) Pt will walk one mile in the community without increase in baseline pain STG Duration 12/04/22 Halfway Goal (LTG) Pt will walk 2 miles in the community without increase in baseline pain. LTG Duration 01/21/23 MET Two Impairment strength Short Term Goal (STG) Pt will complete 5 Time Sit to Stand from standard height chair without use of UE's in 13 seconds or less as a measure of improved strength STG Duration 12/04/22 Halfway Goal (LTG) Pt will improve bilateral hip extension and abduction strength to 4/5 or greater to improve gait mechanics LTG Duration 01/21/23 MET One Impairment HEP Short Term Goal (STG) Pt will be instructed in HEP for ROM, strength, and tissue extensibility to support therapy services provided in clinic STG Duration 12/04/22 Halfway Goal (LTG) Pt will be independent with HEP to improve her strength for return to regular walking program LTG Duration 01/21/23 MET Assessment Summary Assessment Pt has made good progress. She feels she turned a corner overthe last week after doing HEP more regularly. She is able to sleep through the night most nights now and normal daily activties are not painful as they had been. She has met all goals and has been dc. Physical Therapy Plan Frequency and Duration Frequency of Treatment 2x/Week Plan of Care Start Date 10/23/22 Plan of Care End Date 01/21/23 Therapeutic Interventions Therapeutic Interventions Balance Training,Gait Training ,Manual Therapy,Neuromuscular Re-education,Self-Care/Home Management,Soft Tissue Mobilization,Taping, Therapeutic Activities, Therapeutic Exercises Modalities Cold Pack/Ice Massage,Electric Stimulation,Hot Packs
== END 2023-02-20 09:48 | disposition home or self-care (01) ==
LOC: PHYS 14:30
PROVIDERS: Family Provider Nurse Practitioner; PCP Nurse Practitioner; Referring Provider Nurse Practitioner; Visit Provider Nurse Practitioner
DX: M25.551 Pain in right hip (principal); M25.552 Pain in left hip; R26.2 Difficulty in walking, not elsewhere classified
CPT/HCPCS: 97035; 97110; 97116; 97140; 97161

== ENCOUNTER → 2023-04-12 08:00 | Outpatient (CLI) | payer OTHER, SELFPAY | LOC: ENDO 04-22 08:56 → LAB 04-22 08:57 | PROVIDERS: Family Provider Nurse Practitioner; PCP Nurse Practitioner; Referring Provider Nurse Practitioner; Visit Provider Surgery | DX: Z12.11 Encounter for screening for malignant neoplasm of colon (principal) ==

== ENCOUNTER 2023-05-24 10:12 | Day surgery (SDC) | payer OTHER, SELFPAY ==
--- NOTE | 2023-05-24 | PATH_ITS ---
[facility] Accession Number: [id number] No. of containers..03 Tissue . 01 Material submitted: . PART A: colon - TRANSVERSE POLYP PART B: colon - DESCENDING POLYP PART C: rectum - RECTAL POLYP . 01 Diagnosis: A. Transverse Colon Polyp, Biopsy: Colonic mucosa with no significant diagnostic alterations. No definite polyp identified. . B. Descending Colon Polyp, Biopsy: Colonic mucosa with benign lymphoid aggregate. No dysplasia or neoplasia identified. . C. Rectal Polyp, Biopsy: Tubular adenoma. [facility] 06/05/2023 1243 Local . 01 Electronically signed: . Kristin Ramos MD, Pathologist NPI- [id number] . 01 Gross description: . Part A: TRANSVERSE POLYP: Received in formalin are 3 fragment(s) of boyd, soft tissue measuring 0.1 x 0.1 x 0.1 cm to 0.3 x 0.3 x 0.2 cm submitted entirely in 1 cassette(s) Part B: DESCENDING POLYP: Received in formalin are 4 fragment(s) of boyd, soft tissue measuring 0.1 x 0.1 x 0.1 cm to 0.5 x 0.2 x 0.2 cm submitted entirely in 1 cassette(s) Part C: RECTAL POLYP: Received in formalin is 1 fragment(s) of boyd, soft tissue measuring 0.3 x 0.3 x 0.2 cm submitted entirely in 1 cassette(s) /RIANNA 05/29/2023 0050 Local . 01 Pathologist provided ICD-10: K63.89, D12.8 . 01 CPT . 783372, 009313, 257180 Specimen Comment: A courtesy copy of this report has been sent to [facility] Performed at: [facility] [address], [place], [place] [id number] MD Luciano William MD Phone: [phone]
[2023-05-24] MEDS: LACTATED RINGERS 1,000 ML 100 ML IV (11:25)
[2023-05-24 11:46] VITALS: BP 143/76; PULSE 66; RESP 16; TEMP 36.8; O2SAT 97; BMI 44.4
--- NOTE | 2023-05-24 12:39 | P.HP_ITS ---
History of Present Illness History of Present Illness Date Patient Seen: 05/24/23 Time Patient Seen: 12:48 Chief complaint: SD Narrative: 62-year-old female presents today for a screening colonoscopy. It has been about 10 years since her last colonoscopy. She does not recall any polyps on that exam but she was told she had diverticula and she is aware of some hemorrhoids as well. Occasion she has bleeding from below that she attributes to her hemorrhoids. Additionally she has a rectocele that has been very problematic for her. She can not completely evacuate her bowel movements and has to take MiraLax almost daily in order to have bowel movements that do not build up. She has tried fiber supplementation in the past but it is not enough to overcome this rectocele by itself and she feels the MiraLax as necessary. She does have a family history of polyps, though no known family history of colon cancer. [facility] Medical History (Updated 05/24/23 @ 12:51 by Dana Torres MD) Allergies Asthma Atrial fibrillation (~2011) Basal cell carcinoma (~2019) Cataracts, bilateral (~2015) Cervical spine disease (~2019) Chronic anticoagulation Chronic back pain (~1979) CPAP (continuous positive airway pressure) dependence Disease of spine (~2019) Fibroids (~1999) Foot pain (~2013) GERD (gastroesophageal reflux disease) Hearing loss Hemorrhoid Herpes (~1984) High risk medication use Hip pain, bilateral History of skin cancer HLD (hyperlipidemia) HTN (hypertension), benign (~2014) Hypothyroidism (acquired) Osteoarthritis (~1999) Peripheral neuropathy (~2017) Prediabetes Rectocele (~2015) Rectus diastasis Scoliosis Shoulder pain Sleep apnea (~2013) Thyroid nodule (~1999) Tinnitus (~1999) Surgical History Anesthesia History of cataract removal with insertion of prosthetic lens (~2015) History of hysterectomy (~2002) History of lumpectomy (~1989) History of thyroidectomy (~2004) Status post Mohs surgery Family History Father History of heart disease Hypertension Mother Cancer Grandfather History of heart disease Social History household members: none Smoking Status: Never smoker alcohol intake: current Meds Home Medications and Allergies Home Medications Medication Instructions Recorded Confirmed Type acetaminophen 500 mg capsule 1,000 mg PO Q6H PRN Pain (Scale 08/15/22 05/24/23 History Score 1-3) amlodipine 5 mg tablet 5 mg PO DAILY 08/15/22 05/24/23 History atorvastatin 20 mg tablet 20 mg PO BEDTIME 08/15/22 05/24/23 History dabigatran etexilate 150 mg 150 mg PO BID 08/15/22 05/24/23 History capsule (Pradaxa) levothyroxine 175 mcg tablet 175 mcg PO DAILY #90 tabs 08/15/22 11/13/22 Rx metoprolol succinate 25 mg 25 mg PO DAILY 08/15/22 05/24/23 History tablet,extended release 24 hr multivitamin 1 tab PO QAM 08/15/22 05/24/23 History naproxen sodium 220 mg tablet 220 mg PO DAILY 08/15/22 11/13/22 History Allergies Allergy/AdvReac Type Severity Reaction Status Date / Time adhesive Allergy Mild contact Verified 05/24/23 11:33 dermatitis polymyxin B AdvReac Mild Verified 05/24/23 11:33 Exam Vital Signs (past 8 hours): - 05/24/23 11:46 Temperature 98.3 F Pulse Rate 66 Respiratory Rate 16 Blood Pressure 143/76 H Pulse Oximetry 97 Oxygen Delivery Method Room Air Oxygen Delivery Method Room Air Const General: cooperative, healthy appearing, comfortable and No acute distress Nutritional Appearance: obese (BMI 44) [facility] Head: normal to inspection Mouth: oral mucosae normal Eyes General: appearance normal, both eyes and all related structures Resp Effort & Inspection: normal respiratory effort and able to speak in complete sentences GI Palpation: soft and No tender Assessment & Plan Assessment and plan (1) Colon cancer screening: Status: Acute (2) Family history of polyps in the colon: Status: Acute Assessment & Plan narrative: Presents today for screening colonoscopy I discussed the risks benefits and alternatives including but not limited to perforation of the colon and an incomplete exam she fully understands these risks and would like to proceed.
[2023-05-24 13:43] VITALS: BP 117/63; PULSE 57; RESP 14; TEMP 36.2; O2SAT 91
[2023-05-24 13:48] VITALS: BP 127/74; PULSE 68; RESP 20; O2SAT 100
--- NOTE | 2023-05-24 13:51 | P.OP.COLON_ITS ---
Operative Date/Time/Diagnoses Date of procedure: 05/24/23 Time of procedure: 13:51 Pre-op diagnosis: Colon cancer screening, hemorrhoids and rectocele. No family history of colon cancer Post-op diagnosis: same Procedure & Clinicians Study performed: Colonoscopy and biopsy Indications: Colon cancer screening, hemorrhoids and rectocele. No family history of colon c jon Surgeon: Dana Torres Procedure Notes Procedure in detail: Patient was taken to the endoscopy suite and placed in a left lateral decubitus position. A time-out was performed. With the help of anesthesiologist conscious sedation was induced and monitored throughout the case. A digital rectal exam was performed and there were no masses or strictures. There were some small external hemorrhoids. The rectocele was not seen which is not uncommon the patient is relaxed in the position of readiness for colonoscopy. The colonoscope was introduced into the anal canal and advanced through to the cecum. There were scattered diverticula throughout the sigmoid colon. Several photographs were obtained. A photograph of the appendiceal orifice was obtained. The bowel prep was good Frazer bowel prep score of 2. The scope was then withdrawn for a total of 20 minutes including biopsies and a small sessile polyp was seen in the transverse colon and removed with the biopsy forceps. Another similar polyp was removed from the descending colon. There was a very small rectal polyp which was also removed and sent for pathology. The scope was then retroflexed and a photograph of the internal hemorrhoidal piles was obtained. Findings: divertiulosis, internal hemorrhoids and polyp(s) Post-procedure Plan for aftercare: Depending on the pathology results I would anticipate most likely a 7-10 year follow-up exam. If she would like to have me place a referral for evaluation of a rectocele I would be happy to do so. I will ask my office staff to send through a request for consultation with colorectal surgeons at [facility].
[2023-05-24 13:53] VITALS: BP 134/74; PULSE 61; RESP 18; O2SAT 100
[2023-05-24 14:00] VITALS: BP 137/81; PULSE 60; RESP 15; O2SAT 100
[2023-05-24 14:15] VITALS: BP 130/81; PULSE 62; RESP 15; TEMP 36.5; O2SAT 100
== END 2023-05-24 14:30 | disposition home or self-care (01) ==
PROVIDERS: Family Provider Nurse Practitioner; PCP Nurse Practitioner; Referring Provider Surgery; Visit Provider Surgery
PROC: 0DJD8ZZ Inspection of Lower Intestinal Tract, Via Natural or Artificial Opening Endoscopic (ICD-10-PCS; CPT 45378; principal; 2023-05-24 10:45)
DX: Z12.11 Encounter for screening for malignant neoplasm of colon (principal); K64.8 Other hemorrhoids; N81.6 Rectocele; K57.30 Diverticulosis of large intestine without perforation or abscess without bleeding; K62.1 Rectal polyp
CPT/HCPCS: 45380; J2704

== ENCOUNTER → 2023-06-11 11:13 | Outpatient (CLI) | payer OTHER, SELFPAY ==
[2023-06-11 12:35] LABS: TSH w/ Reflex to FT4 4.42 uIU/mL (0.47-4.68)
== END ==
PROVIDERS: Family Provider Nurse Practitioner; PCP Nurse Practitioner; Referring Provider Family Medicine; Visit Provider Family Medicine
DX: E03.9 Hypothyroidism, unspecified (principal)
CPT/HCPCS: 36415; 84443

== ENCOUNTER → 2023-07-25 10:00 | Outpatient (CLI) | payer OTHER, SELFPAY ==
--- NOTE | 2023-07-25 10:01 | DI.MG.S_ITS ---
BILATERAL DIGITAL SCREENING MAMMOGRAM 3D/2D WITH CAD: 07/25/2023 CLINICAL: Routine screening. No prior exams were available for comparison. There are scattered areas of fibroglandular density in both breasts (category b / 25%-50% glandular tissue). Current study was also evaluated with a Computer Aided Detection (CAD) system. There is a focal asymmetry in the right breast at 12 o'clock middle depth. There also is a focal asymmetry in the right breast central to the nipple anterior depth. There is a focal asymmetry in the left breast at 12 o'clock middle depth. No other significant masses or calcifications are seen in either breast. IMPRESSION: INCOMPLETE: NEEDS ADDITIONAL IMAGING EVALUATION The focal asymmetry in the right breast at 12 o'clock middle depth is indeterminate. Additional views with possible ultrasound are recommended. The focal asymmetry in the right breast central to the nipple anterior depth is indeterminate. Additional views with possible ultrasound are recommended. The focal asymmetry in the left breast at 12 o'clock middle depth is indeterminate. Additional views with possible ultrasound are recommended. Based on the Tyrer Cuzick model (a risk assessment model) the patient's lifetime risk is 7.7% and her 10 year risk is 3.6%. According to the ACR, ACS, and NCCN guidelines, an annual breast MRI exam along with mammogram is recommended if the patient's lifetime risk is 20% or greater. This exam was interpreted at Station ID: [id number]. NOTE: For mammograms, a report in lay terms will be sent to the patient. Approximately 15% of breast malignancies will not be visualized mammographically. In the management of a palpable breast mass, a negative mammogram must not discourage biopsy of a clinically suspicious lesion. Electronically Signed By: Sadfa mack/gloria:07/25/2023 17:11:57 letter sent: Additional Imaging Needed ACR BI-RADS Category 0: Incomplete 3340F
== END ==
PROVIDERS: Family Provider Nurse Practitioner; PCP Nurse Practitioner; Referring Provider Nurse Practitioner; Visit Provider Nurse Practitioner
DX: Z12.31 Encounter for screening mammogram for malignant neoplasm of breast (principal); N64.89 Other specified disorders of breast
CPT/HCPCS: 77063; 77067

== ENCOUNTER → 2023-08-14 08:44 | Outpatient (CLI) | payer OTHER, SELFPAY ==
--- NOTE | 2023-08-14 | DI.MG.S_ITS ---
UNILATERAL RIGHT DIGITAL DIAGNOSTIC MAMMOGRAM 3D/2D WITH ADDITIONAL VIEWS: 08/14/2023 CLINICAL: Additional evaluation requested from prior study. Comparison is made to exams dated: 07/25/2023 mammogram - [facility], 01/31/2018 mammogram, 01/03/2018 mammogram, and 01/31/2018 ultrasound - outside location. There are scattered areas of fibroglandular density in the right breast (category b / 25%-50% glandular tissue). There is a 1.7 cm oval focal asymmetry in the right breast at 12 o'clock middle depth. This is increased in size. No other significant masses or calcifications are seen in the breast. IMPRESSION: INCOMPLETE: NEEDS ADDITIONAL IMAGING EVALUATION The 1.7 cm oval focal asymmetry in the right breast is indeterminate. A targeted ultrasound is recommended and will immediately follow. Based on the Tyrer Cuzick model (a risk assessment model) the patient's lifetime risk is 7.7% and her 10 year risk is 3.6%. According to the ACR, ACS, and NCCN guidelines, an annual breast MRI exam along with mammogram is recommended if the patient's lifetime risk is 20% or greater. This exam was interpreted at Station ID: [id number]. NOTE: For mammograms, a report in lay terms will be sent to the patient. Approximately 15% of breast malignancies will not be visualized mammographically. In the management of a palpable breast mass, a negative mammogram must not discourage biopsy of a clinically suspicious lesion. Electronically Signed By: Tarik Rodriguez M.D. slc/:08/14/2023 09:26:17 ACR BI-RADS Category 0: Incomplete 3340F
--- NOTE | 2023-08-14 08:45 | DI.US.S_ITS ---
LIMITED ULTRASOUND OF RIGHT BREAST AND AXILLA: 08/14/2023 CLINICAL: Patient returns today to evaluate a focal asymmetry in the right breast. Comparison is made to exams dated: 08/14/2023 mammogram, 07/25/2023 mammogram - , 01/31/2018 mammogram, 01/31/2018 ultrasound, and 01/03/2018 mammogram - outside location. Color flow and real-time ultrasound of the right breast 12 o'clock, and axilla regions were performed. Mcwilliams scale images of the real-time examination were reviewed. There is a benign 2 cm x 1.6 cm x 1.3 cm cluster of oval cysts in the right breast at 12 o'clock middle depth 4 cm from the nipple. This cluster of oval cysts is anechoic with a well-defined boundary and posterior acoustic enhancement. These abnormalities are increased in size and correlates with mammography findings. Color flow imaging demonstrates that there is no vascularity present. No significant abnormalities were seen sonographically in the right axilla. IMPRESSION: BENIGN There is no sonographic evidence of malignancy. The 2 cm cluster of oval cysts in the right breast is benign. Patient will be due for right mammogram at that time. A 1 year screening mammogram is recommended. Exam findings were conveyed to the patient. This exam was interpreted at Station ID: [id number]. Electronically Signed By: Tarik Rodriguez M.D. slc/:08/14/2023 09:56:09 letter sent: Normal Exam Ultrasound BI-RADS: 2 Benign
== END ==
PROVIDERS: Family Provider Nurse Practitioner; PCP Nurse Practitioner; Referring Provider Nurse Practitioner; Visit Provider Nurse Practitioner
DX: R92.8 Other abnormal and inconclusive findings on diagnostic imaging of breast (principal); N60.01 Solitary cyst of right breast
CPT/HCPCS: 76642; 77065; 77066; G0279

== ENCOUNTER → 2023-09-13 09:24 | Outpatient (CLI) | payer MEDICARE, OTHER, SELFPAY ==
[2023-09-13 10:58] LABS: Add Manual Diff / Slide Review NO; Basophils Absolute Auto 0 /uL (0-100); Basophils Percent Auto 0.7 % (0-2); Eosinophils Absolute Auto 100 /uL (0-450); Eosinophils Percent Auto 1.7 % (2-4); Hematocrit 39.7 % (36-46); Hemoglobin 13.4 g/dL (12.0-16.0); Lymphocytes Absolute Auto 2000 /uL (1100-4500); Lymphocytes Percent Auto 32.9 % (25-40); Mean Corpuscular HGB Conc 33.7 % (30-36); Mean Corpuscular Hemoglobin 29.6 PG (26-34); Mean Corpuscular Volume 87.9 fL (80-100); Monocytes Absolute Auto 500 /uL (0-900); Monocytes Percent Auto 8.2 % (3-14); Neutrophils Absolute Auto 3500 /uL (1500-7000); Neutrophils Percent Auto 56.5 % (50-75); Platelet Count 275 X10^3/uL (150-400); Red Blood Cell Count 4.52 X10^6/uL (4.0-5.2); Red Cell Distribution Width 14.1 % (11.6-14.8); White Blood Cell Count 6.1 X10^3/uL (4.5-11.0)
[2023-09-13 11:44] LABS: Alanine Aminotransferase 21 IU/L (<35); Albumin 4.1 g/dL (3.5-5.0); Albumin Globulin Ratio 1.3 (1.0-2.8); Alkaline Phosphatase 62 U/L (38-126); Aspartate Aminotransferase 21 IU/L (14-36); BUN Creatinine Ratio 20.3 (6-22); Bilirubin Total 0.5 mg/dL (0.2-1.3); Blood Urea Nitrogen 14 mg/dL (7-17); Calcium 9.5 mg/dL (8.4-10.2); Carbon Dioxide 28 mmol/L (22-32); Chloride 105 mmol/L (98-107); Cholesterol 143 mg/dL (140-199); Estimated Glomerular Filt Rate > 60 mL/min (>60); Globulin 3.1 g/dL (1.7-4.1); Glucose 105 mg/dL (80-110); HDL Cholesterol 47 mg/dL (40-60); HEMOLYSIS < 15 (0-50); LDL Cholesterol Calculated 75 mg/dL (<100); Sodium 140 mmol/L (137-145); Total Protein 7.2 g/dL (6.3-8.2); Triglycerides 103 mg/dL (35-150)
[2023-09-13 11:48] LABS: Free T3, Triiodothyronine Free 3.16 pg/mL (2.77-5.27); Free T4, Direct Thyroxine 1.57 ng/dL (0.78-2.19)
[2023-09-13 12:02] LABS: Thyroid Stimulating Hormone 1.54 uIU/mL (0.47-4.68)
[2023-09-13 15:34] LABS: Microalbumin Urine Random 1.4 mg/dL (0-1.6)
[2023-09-13 15:36] LABS: Creatinine Urine Random 108.1 mg/dL; Microalbumi Creatinin Ratio Ur 12.9 ug/mg CR (<30)
[2023-09-16 10:44] LABS: Fecal Immunochemical Test Negative (Negative)
== END ==
PROVIDERS: Family Provider Nurse Practitioner; PCP Nurse Practitioner; Referring Provider Nurse Practitioner; Visit Provider Nurse Practitioner
DX: Z00.00 Encounter for general adult medical examination without abnormal findings (principal); Z12.11 Encounter for screening for malignant neoplasm of colon; E78.5 Hyperlipidemia, unspecified; E03.9 Hypothyroidism, unspecified; Z79.01 Long term (current) use of anticoagulants
CPT/HCPCS: 36415; 80053; 80061; 82043; 82274; 82570; 84439; 84443; 84481; 85025

== ENCOUNTER 2023-11-21 12:12 | Day surgery (SDC) | payer MEDICARE, OTHER, SELFPAY ==
[2023-11-20 09:16] VITALS: BMI 44.4
[2023-11-21] VITALS (11 sets, daily range): BP systolic 116–151; BP diastolic 50–97; PULSE 63–74; RESP 12–18; TEMP 36.3–37; O2SAT 94–99; BMI 44.4; BMI 45.8
[2023-11-21] MEDS: LACTATED RINGERS 1,000 ML 42 ML IV (13:17)
--- NOTE | 2023-11-21 13:24 | PM.PREOP ---
Pre-operative Note Interval Note History & Physical reviewed/Exam performed by Physician: Yes Changes to H&P: No H&P completed within 30 days and has changed as indicated here:: 11/18/23
[2023-11-21] MEDS: CEFAZOLIN 2 GM/100 ML PREMIX 100 ML IV (14:16)
--- NOTE | 2023-11-21 14:19 | SUR.OPER ---
Lithotomy on padded OR bed, head on pillow, arms secured on padded arm boards at <90 degrees abduction. Legs secured in padded yellow fins stirrups.
[2023-11-21] MEDS: CEFAZOLIN VIAL 1 GM in SODIUM CHLORIDE 0.9% 100 ML IV (14:22)
[2023-11-21] MEDS: BUPIVACAINE 0.25% (PF) 30 ML, EPINEPHrine 0.15 MG INJ (14:29)
--- NOTE | 2023-11-21 15:05 | PM.GYNOP.1 ---
Operative Date/Time/Diagnoses Date of procedure: 11/21/23 Time of procedure: 15:05 Pre-op diagnosis: Symptomatic rectocele Post-op diagnosis: same Procedure & Clinicians Procedure: Procedures Operation Date: 11/21/23 13:30 Actual Procedure Side Surgeon p Posterior repair Georgia Connor MD Indications: 63-year-old 2 para 2002 with a symptomatic rectocele. Surgeon: Georgia Connor [employer]idential [employer] Assistant: Melissa Casillas Anesthesia Type: General and Local (0.25% Marcaine with epi) Operative Notes Findings: Third-degree rectocele Closure Type: primary Specimen(s): none Applied: catheter (In/out at the end of the case) and other (Betadine moistened vaginal packing in place (loose)) Estimated blood loss (mL): 15 Blood products transfused: none Procedure in detail: The patient was taken to the operating room where she was placed in the dorsal supine position. After adequate general endotracheal anesthesia was achieved, she was placed in the dorsal lithotomy position, and prepped and draped in the usual sterile fashion. A time-out was performed. Allis clamps were placed at the mucocutaneous junction. 10 cc of 0.25% Marcaine with epinephrine were injected between the 2 Allis clamps and down onto the perineal body. An incision was made between the 2 Allis clamps and a triangular piece of skin with underlying subcutaneous tissue was removed from the introitus and perineum. Wide Allis clamps were placed at the midline of the rectocele. 10 cc of 0.25% Marcaine with epinephrine were injected submucosally along both sides of the midline. The mucosa was undermined with the Metzenbaum scissors and incised in the midline moving the wide Allis clamps to the edges. This continued to the apex of the rectocele. The underlying fascia was dissected off of the mucosa using a # 10 blade and an open moistened Ray-Nicole. The fascia was reapproximated using 2-0 Vicryl with interrupted sutures. The excess vaginal mucosa was excised. The mucosa was closed with 2-0 Vicryl in simple interrupted sutures including the underlying fascia to close the space. At the introitus an 0 Vicryl stitch was used to reapproximate the levators. 2-0 Vicryl was used to close the deeper tissue on the perineum with simple interrupted sutures. The skin was closed with 3-0 chromic with simple interrupted sutures. A Betadine moistened vaginal packing was placed loosely into the vagina. A silastic catheter was used to empty the bladder. There was clear yellow urine. A rectal exam was performed using Surgilube and there were no sutures palpable in the rectum. Sponge, lap, and instrument counts were correct x2. The patient tolerated the procedure well, and was taken to PACU in stable condition. Complications: none Post-operative Condition: stable Disposition: PACU Plan for aftercare: Home after recovery
[2023-11-21] MEDS: ACETAMINOPHEN 325 MG TABLET 650 MG PO ×2 (16:13→21:28)
[2023-11-21] MEDS: LACTATED RINGERS 1,000 ML 75 ML IV (16:14)
[2023-11-21] MEDS: DOCUSATE 100 MG CAPSULE 200 MG PO (21:28)
[2023-11-21] MEDS: METFORMIN XR 500 MG TABLET PO (21:28)
[2023-11-21] MEDS: ATORVASTATIN 20 MG TABLET PO (21:28)
[2023-11-21] MEDS: BENZOCAINE/MENTHOL 1 LOZ PKT 1 EACH PO (21:28)
[2023-11-21] MEDS: LACTATED RINGERS 1,000 ML 50 ML IV (21:29)
--- NOTE | 2023-11-22 01:13 | PC.NURSE ---
Received order from Dr. Connor to change rate of fluids to 50/hr. Also received order for cepacol lozenges Q2 hours.
[2023-11-22] MEDS: ACETAMINOPHEN 325 MG TABLET 650 MG PO ×2 (05:19→09:16)
[2023-11-22] MEDS: PANTOPRAZOLE DR 20 MG TABLET PO (05:19)
[2023-11-22] MEDS: LEVOTHYROXINE 100 MCG TABLET PO (05:19)
[2023-11-22] MEDS: LEVOTHYROXINE 75 MCG TABLET PO (05:19)
--- NOTE | 2023-11-22 06:56 | PC.NURSE ---
Vaginal packing removed @ 0610 per order. No drainage/ blood on pad at time of removal.
[2023-11-22 07:28] LABS: Add Manual Diff / Slide Review NO; Basophils Absolute Auto 0 /uL (0-100); Basophils Percent Auto 0.3 % (0-2); Eosinophils Absolute Auto 0 /uL (0-450); Hematocrit 38.4 % (36-46); Hemoglobin 12.8 g/dL (12.0-16.0); Lymphocytes Absolute Auto 1800 /uL (1100-4500); Lymphocytes Percent Auto 19.9 % (25-40); Mean Corpuscular HGB Conc 33.3 % (30-36); Mean Corpuscular Hemoglobin 29.3 PG (26-34); Mean Corpuscular Volume 88.1 fL (80-100); Monocytes Absolute Auto 600 /uL (0-900); Monocytes Percent Auto 6.4 % (3-14); Neutrophils Absolute Auto 6600 /uL (1500-7000); Neutrophils Percent Auto 73.4 % (50-75); Platelet Count 265 X10^3/uL (150-400); Red Blood Cell Count 4.36 X10^6/uL (4.0-5.2); Red Cell Distribution Width 13.6 % (11.6-14.8)
[2023-11-22 08:00] VITALS: BP 116/48; PULSE 61; RESP 20; TEMP 36; O2SAT 93
[2023-11-22] MEDS: METFORMIN XR 500 MG TABLET PO (08:27)
[2023-11-22 08:28] VITALS: BP 116/48; PULSE 61
[2023-11-22] MEDS: METOPROLOL ER 25 MG TABLET PO (08:28)
[2023-11-22] MEDS: AMLODIPINE 5 MG TABLET PO (08:28)
[2023-11-22] MEDS: DOCUSATE 100 MG CAPSULE 200 MG PO (08:29)
[2023-11-22] MEDS: polyethylene glycoL 3350 17 GM POWD.PACK PO (08:29)
--- NOTE | 2023-11-22 10:55 | PC.NURSE ---
Patient is A&OX4, VSS, afebrile on RA. She is ambulating to the bathroom and voiding without difficulty. Vaginal packing had been removed at 0600 by security shift manager RN. MD Glover at bedside this a.m. clearing patient for discharge home after breakfast with her son. She verbalizes understanding of activity limitations, s/sx of infection, acknowledged to call provider if substantial bleeding as well as to follow up with MD Ward with appointment on November at 11 a.m. She is escorted by STENCIL MACHINE OPERATOR at 0950 a.m. via w/ch with all of her belongings including her CPAP machine for discharge home in private vehicle with her son.
--- NOTE | 2023-11-22 14:42 | CM.DANOTE ---
Initial DCP Assessment Note Pt is a 63yo female, resident of [place], now POD#1 from Posterior repair r/t Symptomatic rectocele PCP: Cary Mason Payer: WILMAN/[employer] Reviewed chart, pt discussed in multidisciplinary rounds this morning. Patient has planned for home, DC order initiated by Dr Connor. No barriers identified at this time to patient's safe discharge home w/family to assist; close outpatient f/u recommended. JAMES Guthrie Discharge Planning/Care Management CM Discharge Assessment Start: 11/22/23 14:35 Freq: Status: Active Protocol: Document 11/22/23 14:35 LARRY (Rec: 11/22/23 14:42 [id number]) Discharge Planning Assessment Assigned Textile Technical Officer JAMES Cardona DPOA/Assigned Designee Name tyra Reeves Contact Information [phone] Advance Directives? Yes Advance Directives on File No History Provided By Patient,Medical Record Prior Living Arrangements House Household Members family Type of transportation used prior to Drives own vehicle admit Independent with ADL's Yes Is patient alert and oriented? Yes Patient/Family Preference OP PT Therapy Barriers to Discharge No Discharge Plan Home Transportation Arrangement Family Referrals Initiated None needed
--- NOTE | 2023-11-24 16:15 | P.DS_ITS ---
History of Present Illness History of Present Illness Date Patient Seen: 11/22/23 Time Patient Seen: 07:45 Chief complaint: OPB Narrative: Patient is a 63-year-old postop day # 1 status post a posterior repair. She is doing very well. She has tolerating a diet. Pain is well controlled. She has voided. Her vaginal packing was removed. She is passing flatus. She is ambulating without assistance. Discharge Providers Provider Date of admission: 11/21/23 Discharge Date: 11/22/23 Primary care physician: BRANT Montez Consults: 11/20/23 09:45 Consult to Anesthesiology Routine Comment: PAC- Cardiac Consulting Provider: Anesthesiologist Reason for consultation: Cardiac Discharge provider: Georgia Connor MD Summary Hospital Course Discharge Diagnosis: Symptomatic rectocele Posterior repair Perineorrhaphy Hospital Course: Patient is a 63-year-old who presented on November 21, 2023 for a scheduled posterior repair and perineorrhaphy. She underwent this procedure without complication. Her postoperative course was unremarkable. The packing was removed on postop day #1. She is ambulating without assistance. She has emptied her bladder without difficulty. Her pain is well controlled. She is tolerating a diet. Her bleeding is minimal. She is discharged home Status at Discharge Cognitive/behavioral status at discharge: oriented Functional status at discharge: independent ambulation Overall status at discharge: patient is progressing back to baseline Time Spent with Patient Time spent: Less than 30 minutes Exam Vital Signs (past 8 hours): Oxygen Delivery Method Room Air Oxygen Flow Rate 0 Narrative Exam Narrative: Generally: Patient is lying in bed, no acute distress Lungs: Clear to auscultation bilaterally Cardiovascular: Regular rate and rhythm Abdomen: Soft, nontender Perineum: Small amount of old blood Extremities: Trace edema, negative Homans Objective Labs 11/22/23 06:30 [facility] Medical History Gastric reflux History of ovarian cyst Obesity High risk medication use Chronic anticoagulation Rectus diastasis Prediabetes CPAP (continuous positive airway pressure) dependence Osteoarthritis (~1999) Sleep apnea (~2013) Asthma Allergies Peripheral neuropathy (~2017) Shoulder pain Scoliosis Disease of spine (~2019) Foot pain (~2013) Chronic back pain (~1979) Cervical spine disease (~2019) Tinnitus (~1999) Hearing loss Cataracts, bilateral (~2015) Herpes (~1984) Fibroids (~1999) Rectocele (~2015) Hemorrhoid GERD (gastroesophageal reflux disease) Thyroid nodule (~1999) Basal cell carcinoma (~2019) HLD (hyperlipidemia) HTN (hypertension), benign (~2014) Hip pain, bilateral History of skin cancer Atrial fibrillation (~2011) Hypothyroidism (acquired) Surgical History Anesthesia Status post Mohs surgery History of cataract removal with insertion of prosthetic lens (~2015) History of lumpectomy (~1989) History of hysterectomy (~2002) History of thyroidectomy (~2004) Family History Father History of heart disease Hypertension Mother Cancer Grandfather History of heart disease Social History household members: family Smoking Status: Never smoker alcohol intake: current Discharge Assessment & Plan Assessment and Plan Assessment: Assessment: 63-year-old postop day # 1 status post posterior repair, doing very well Plan of Treatment: Discharge to home Follow-up in 2 weeks Discharge Plan Discharge Plan Patient Disposition: Home Provider Discharge Comment: Call with fever, chills, or bleeding vaginally more than spotting to light Tylenol 650 mg every 6 hours as needed for pain May restart blood thinner on Saturday Discharge orders & Medications Discharge Orders: Discharge (Order); Ordered 11/22/23 Ordered By: Georgia Connor Prescriptions: Continued dabigatran etexilate [Pradaxa] 150 mg capsule 150 mg PO BID Qty: 180 1RF levothyroxine 175 mcg tablet 175 mcg PO DAILY Qty: 90 1RF amlodipine 5 mg tablet 5 mg PO DAILY Qty: 90 1RF metoprolol succinate 25 mg tablet extended release 24 hr 25 mg PO DAILY Qty: 90 1RF atorvastatin 20 mg tablet 20 mg PO BEDTIME Qty: 90 1RF polyethylene glycol 3350 [Miralax] 17 gram/dose powder 17 g PO DAILY omeprazole 20 mg capsule,delayed release(DR/EC) 20 mg PO DAILY Qty: 90 3RF semaglutide (weight loss) 0.25 mg/0.5 mL pen injector 0.25 mg SUBCUT QWEEK Qty: 2 0RF Rx Instructions: administer weeks 1 through 4 of therapy, then increase to 0.5mg weekly x4 weeks semaglutide (weight loss) 0.5 mg/0.5 mL pen injector 0.5 mg SUBCUT QWEEK Qty: 2 0RF Rx Instructions: administer weeks 5 through 8 of therapy, then increase as tolerated to 1mg weekly semaglutide 1 mg/dose (4 mg/3 mL) pen injector 1 mg SUBCUT QWEEK Qty: 3 3RF Rx Instructions: Inject 1mL SQ week 9 and beyond Semaglutide 1mg/ml See Rx Instructions SUBCUT .COMPLEX Qty: 6 0RF Rx Instructions: Inject 0.25mg SQ weekly x 4 weeks, then increase to 0.5mg weekly x 4 weeks, then increase to 1mg weekly thereafter multivitamin Tablet 1 tab PO QAM naproxen sodium 220 mg tablet 220 mg PO DAILY Rx Instructions: Pt takes on average at bedtime weekly, not daily. acetaminophen 500 mg capsule 1,000 mg PO Q6H PRN (Reason: Pain (Scale Score 1-3)) Rx Instructions: NTE 3000mg/24 hours docusate sodium [Colace] 100 mg Capsule 100 mg PO DAILY metformin 500 mg tablet extended release 24 hr 500 mg PO BID Fiber (psyllium husk-sugar) 3.4 gram/7 gram powder 1 tbsp PO BID Qty: 822 0RF Discontinued estradiol [Estrace] 0.01 % (0.1 mg/gram) cream 0.5 g vaginal 2XW Qty: 42.5 3RF Rx Instructions: Apply 0.5gm in vagina every day for 14 days and then twice a week Follow up/Referrals: Georgia Connor MD [Physician] - (Patient has postoperative visit already scheduled *Appt on November @ 1130am with Dr. Azar. [phone]) Diet/Activity/Treatments Diet: Diet as Tolerated Activity: No heavy lifting Nothing in the vagina, including estrogen Skin/Wound/Dressing Care Report to your healthcare provider any signs of infection, such as:: chills, fever, increased pain and unusual drainage Visit Report/Discharge Packet Instructions: DI for Cystocele and Rectocele Repair Stand Alone Forms: Patient Portal/API, Surgery Discharge Discharge Data Primary Care Provider: Cary Mason Attending Provider: Garde,Georgia A Quality VTE Deep Vein Thrombosis/Pulmonary Embolism Present on Admission: No
== END 2023-11-22 09:50 | disposition home or self-care (01) ==
LOC: OR 12:14 → AC 12:14
PROVIDERS: Family Provider Nurse Practitioner; PCP Nurse Practitioner; Referring Provider Obstetrics & Gynecology; Visit Provider Obstetrics & Gynecology
PROC: (CPT 57250; principal; 2023-11-21 13:30)
DX: N81.6 Rectocele (principal); I48.91 Unspecified atrial fibrillation; Z79.01 Long term (current) use of anticoagulants
CPT/HCPCS: 57250; 36415; 82962; 85025; 93005; 93010; J0171; J0690; J1100; J1885; J2250; J2405; J2704; J3010

== ENCOUNTER → 2023-12-05 14:32 | Outpatient (CLI) | payer MEDICARE, OTHER, SELFPAY ==
[2023-11-21 15:56] VITALS: BMI 45.8
== END ==
PROVIDERS: Family Provider Nurse Practitioner; PCP Nurse Practitioner; Visit Provider Physician Assistant Medical
DX: R30.0 Dysuria (principal); N89.8 Other specified noninflammatory disorders of vagina
CPT/HCPCS: 87070; 87086; 87205

== ENCOUNTER → 2024-01-24 08:35 | Outpatient (CLI) | payer MEDICARE, OTHER, SELFPAY ==
[2023-11-21 15:56] VITALS: BMI 45.8
[2024-01-24 10:21] LABS: Hemoglobin A1C% w Est Avg Glu 5.9 % (4.0-6.0)
[2024-01-24 10:32] LABS: Alanine Aminotransferase 15 IU/L (<35); Albumin 4.1 g/dL (3.5-5.0); Albumin Globulin Ratio 1.7 (1.0-2.8); Alkaline Phosphatase 64 U/L (38-126); Aspartate Aminotransferase 19 IU/L (14-36); BUN Creatinine Ratio 15.9 (6-22); Bilirubin Total 0.5 mg/dL (0.2-1.3); Blood Urea Nitrogen 11 mg/dL (7-17); Calcium 9.6 mg/dL (8.4-10.2); Carbon Dioxide 30 mmol/L (22-32); Chloride 108 mmol/L (98-107); Estimated Glomerular Filt Rate > 60 mL/min (>60); Globulin 2.4 g/dL (1.7-4.1); Glucose 102 mg/dL (80-110); HEMOLYSIS < 15 (0-50); Potassium 4.7 mmol/L (3.4-5.1); Sodium 141 mmol/L (137-145); Total Protein 6.5 g/dL (6.3-8.2)
== END ==
PROVIDERS: Family Provider Nurse Practitioner; PCP Nurse Practitioner; Referring Provider Nurse Practitioner; Visit Provider Nurse Practitioner
DX: R73.03 Prediabetes (principal); E78.5 Hyperlipidemia, unspecified; Z79.899 Other long term (current) drug therapy
CPT/HCPCS: 36415; 80053; 83036

== ENCOUNTER → 2024-04-24 09:09 | Outpatient (CLI) | payer MEDICARE, OTHER, SELFPAY ==
[2023-11-21 15:56] VITALS: BMI 45.8
[2024-04-24 10:56] LABS: Alanine Aminotransferase 14 IU/L (<35); Albumin Globulin Ratio 1.6 (1.0-2.8); Alkaline Phosphatase 70 U/L (38-126); Aspartate Aminotransferase 18 IU/L (14-36); BUN Creatinine Ratio 18.1 (6-22); Bilirubin Total 0.4 mg/dL (0.2-1.3); Blood Urea Nitrogen 13 mg/dL (7-17); Carbon Dioxide 28 mmol/L (22-32); Chloride 109 mmol/L (98-107); Cholesterol 137 mg/dL (140-199); Estimated Glomerular Filt Rate > 60 mL/min (>60); Globulin 2.5 g/dL (1.7-4.1); Glucose 95 mg/dL (80-110); HDL Cholesterol 59 mg/dL (40-60); HEMOLYSIS < 15 (0-50); LDL Cholesterol Calculated 59 mg/dL (<100); Potassium 4.1 mmol/L (3.4-5.1); Sodium 140 mmol/L (137-145); Total Protein 6.5 g/dL (6.3-8.2); Triglycerides 96 mg/dL (35-150)
[2024-04-24 11:12] LABS: Free T4, Direct Thyroxine 1.44 ng/dL (0.78-2.19)
[2024-04-24 11:26] LABS: Thyroid Stimulating Hormone 0.864 uIU/mL (0.47-4.68)
[2024-04-24 11:27] LABS: Creatinine Urine Random 122.25 mg/dL
[2024-04-24 11:34] LABS: Microalbumin Urine Random 0.8 mg/dL (0-1.6)
[2024-04-24 13:59] LABS: Hemoglobin A1C% w Est Avg Glu 5.6 % (4.0-6.0)
== END ==
PROVIDERS: Family Provider Nurse Practitioner; PCP Nurse Practitioner; Referring Provider Nurse Practitioner; Visit Provider Nurse Practitioner
DX: R73.03 Prediabetes (principal); E78.5 Hyperlipidemia, unspecified; I10 Essential (primary) hypertension; I48.0 Paroxysmal atrial fibrillation; E03.9 Hypothyroidism, unspecified; E66.01 Morbid (severe) obesity due to excess calories
CPT/HCPCS: 80053; 80061; 82043; 82570; 83036; 84439; 84443; 84481

== ENCOUNTER → 2024-07-24 08:15 | Outpatient (CLI) | payer MEDICARE, OTHER, SELFPAY ==
[2023-11-21 15:56] VITALS: BMI 45.8
[2024-07-24 09:36] LABS: Hematocrit 39.5 % (36-46); Hemoglobin 13.2 g/dL (12.0-16.0); Mean Corpuscular HGB Conc 33.4 % (30-36); Mean Corpuscular Hemoglobin 29.2 PG (26-34); Mean Corpuscular Volume 87.5 fL (80-100); Platelet Count 307 X10^3/uL (150-400); Red Blood Cell Count 4.51 X10^6/uL (4.0-5.2); Red Cell Distribution Width 13.7 % (11.6-14.8); White Blood Cell Count 6.9 X10^3/uL (4.5-11.0)
[2024-07-24 09:56] LABS: Hemoglobin A1C% w Est Avg Glu 5.8 % (4.0-6.0)
[2024-07-24 10:37] LABS: Alanine Aminotransferase 14 IU/L (<35); Albumin 3.8 g/dL (3.5-5.0); Albumin Globulin Ratio 1.5 (1.0-2.8); Alkaline Phosphatase 79 U/L (38-126); Aspartate Aminotransferase 19 IU/L (14-36); BUN Creatinine Ratio 13.7 (6-22); Bilirubin Total 0.4 mg/dL (0.2-1.3); Blood Urea Nitrogen 10 mg/dL (7-17); Calcium 9.1 mg/dL (8.4-10.2); Carbon Dioxide 25 mmol/L (22-32); Chloride 106 mmol/L (98-107); Cholesterol 126 mg/dL (140-199); Estimated Glomerular Filt Rate > 60 mL/min (>60); Globulin 2.6 g/dL (1.7-4.1); Glucose 101 mg/dL (80-110); HDL Cholesterol 54 mg/dL (40-60); HEMOLYSIS < 15 (0-50); LDL Cholesterol Calculated 54 mg/dL (<100); Potassium 4.4 mmol/L (3.4-5.1); Sodium 138 mmol/L (137-145); Total Protein 6.4 g/dL (6.3-8.2); Triglycerides 90 mg/dL (35-150)
== END ==
LOC: LAB 08:16
PROVIDERS: Family Provider Nurse Practitioner; PCP Nurse Practitioner; Referring Provider Nurse Practitioner; Visit Provider Nurse Practitioner
DX: R73.03 Prediabetes (principal); Z91.89 Other specified personal risk factors, not elsewhere classified; E78.5 Hyperlipidemia, unspecified; I10 Essential (primary) hypertension; I48.91 Unspecified atrial fibrillation; Z79.01 Long term (current) use of anticoagulants
CPT/HCPCS: 36415; 80053; 80061; 83036; 85027

== ENCOUNTER → 2024-08-28 15:48 | Outpatient (CLI) | payer MEDICARE, OTHER, SELFPAY ==
[2023-11-21 15:56] VITALS: BMI 45.8
--- NOTE | 2024-08-28 15:49 | DI.MG.S_ITS ---
BILATERAL DIGITAL SCREENING MAMMOGRAM 3D/2D WITH CAD: 08/28/2024 CLINICAL: Routine screening. Comparison is made to exams dated: 07/25/2023 mammogram - [facility], 01/31/2018 mammogram, and 01/03/2018 mammogram - outside location. There are scattered areas of fibroglandular density (category b / 25%-50% glandular tissue). Current study was also evaluated with a Computer Aided Detection (CAD) system. No significant masses, calcifications, or other findings are seen in either breast. There has been no significant interval change. IMPRESSION: NEGATIVE There is no mammographic evidence of malignancy. A 1 year screening mammogram is recommended. Based on the Tyrer Cuzick model (a risk assessment model) the patient's lifetime risk is 7.4% and her 10 year risk is 3.6%. According to the ACR, ACS, and NCCN guidelines, an annual breast MRI exam along with mammogram is recommended if the patient's lifetime risk is 20% or greater. This exam was interpreted at Station ID: [id number]. NOTE: For mammograms, a report in lay terms will be sent to the patient. Approximately 15% of breast malignancies will not be visualized mammographically. In the management of a palpable breast mass, a negative mammogram must not discourage biopsy of a clinically suspicious lesion. Electronically Signed By: Haris casas/gloria:08/31/2024 07:27:28 letter sent: Normal Exam ACR BI-RADS Category 1: Negative
== END ==
PROVIDERS: Family Provider Nurse Practitioner; PCP Registered Nurse Diabetes Educator; Referring Provider Registered Nurse Diabetes Educator; Visit Provider Registered Nurse Diabetes Educator
DX: Z12.31 Encounter for screening mammogram for malignant neoplasm of breast (principal)
CPT/HCPCS: 77063; 77067

== ENCOUNTER → 2024-12-17 09:13 | Outpatient (CLI) | payer MEDICARE, OTHER, SELFPAY ==
[2023-11-21 15:56] VITALS: BMI 45.8
--- NOTE | 2024-12-17 09:14 | DI.ECHO.S_ITS ---
[place] +---------+ [facility] : : [address] : : [place] : : [id number] : : Phone: [phone] Echocardiogram Report + + :Name: ALEJANDRA TURNER Study Date: 12/17/2024 Height: 70 in : :Hospital ReadingLocation: Weight: 304 lb : : Gender: Female BSA: 2.5 m2 : :: 1960 Age: 64 yrs BP: 143/90 mmHg: :Reason For Study: ATRIAL FIBRILLATION : :Ordering Physician: DERIK, : :SORAYA Grace Performed By: Malia Ko : :Referring: SORAYA BRENNER : + + Interpretation Summary The ejection fraction is estimated to be 55-60%. Diastolic parameters suggest probable normal left ventricular diastolic function and normal filling pressures. The right ventricle is normal in size and function. No significant valvular abnormalities. Pulmonary artery pressures cannot be estimated because of the lack of a measurable TR jet velocity but the IVC suggests a CVP of around 3 mmHg. Compared to the prior study 12/31/2022, no change. Procedure: A two-dimensional transthoracic echocardiogram with color flow and Doppler was performed. The study quality was technically difficult. Comparison is made with the echocardiogram of 12/31/2022. The patient was in sinus rhythm with heart rates between 58-70 bpm during the exam. Left Ventricle: The left ventricle is normal in size and wall thickness. The ejection fraction is estimated to be 55-60%. Diastolic parameters suggest probable normal left ventricular diastolic function and normal filling pressures. Right Ventricle: The right ventricle is normal in size and function. Atria: The left atrial size is normal. Right atrial size is normal. There is no Doppler evidence for an interatrial shunt. Mitral Valve: The mitral valve leaflets appear to open well. There is trace mitral regurgitation. Aortic Valve: The aortic valve is trileaflet. The aortic valve opens well. There is no aortic valve stenosis. No aortic regurgitation is present. Tricuspid Valve: The tricuspid valve leaflets are thin and pliable. No tricuspid regurgitation. Pulmonary artery pressures cannot be estimated because of the lack of a measurable TR jet velocity but the IVC suggests a CVP of around 3 mmHg. Pulmonic Valve: The pulmonic valve leaflets are thin and pliable; valve motion is normal. There is trace pulmonic regurgitation. Great Vessels: The aortic root is normal size. The ascending aorta could not be visualized. The IVC is of normal diameter and collapses greater than 50% with a sniff. This suggests a low right atrial pressure of 3 mm Hg. Pericardium/ Pleura There is no pericardial effusion. There is no pleural effusion. MMode/2D Measurements & Calculations LVIDd: 4.3 cm LVOT diam: 2.1 cm LVIDs: 3.0 cm Ao root diam: 2.9 cm FS: 30.8 % Ao Arch Diam (Prox Trans): 3.2 cm IVSd: 1.1 cm LVPWd: 0.80 cm LV chavez. diameter/BSA (cm/m^2): 1.7 LV sys. diameter/BSA (cm/m^2): 1.2 LA A2 area: 18.6 cm2 RA long axis: 5.3 cm LA A4 area: 16.0 cm2 RA area: 18.1 cm2 LA length (vol): 5.1 cm RA vol: 52.2 ml LA vol: 49.4 ml RA : 20.9 ml/m2 LA vol index: 19.8 ml/m2 IVC diam: 1.2 cm RVD1 (basal): 4.0 cm TAPSE: 2.5 cm Doppler Measurements & Calculations Ao V2 max: 102.8 cm/sec LVOT Max Rm: 93.5 cm/sec Ao V2 mean: 72.0 cm/sec LV V1 max P.5 mmHg Ao max P.2 mmHg LV V1 VTI: 20.8 cm Ao mean P.3 mmHg VEGA(I,D): 2.8 cm2 Ao V2 VTI: 24.5 cm VEGA(V,D): 3.0 cm2 sev ratio: 0.85 VEGA indexed to BSA (cm^2/m^2): 1.1 MV E max rm: 68.8 cm/sec PA V2 max: 93.7 cm/sec MV A max rm: 71.4 cm/sec PA V2 mean: 62.4 cm/sec MV E/A: 0.96 PA mean P.7 mmHg Med Peak E' Rm: 7.5 cm/sec PA pr(Accel): 27.6 mmHg E/E' med: 9.1 Lat Peak E' Rm: 10.7 cm/sec E/E' lat: 6.4 E/e' average: 7.8 MV dec time: 0.19 sec SV(LVOT): 69.4 ml Reading Physician:06:22 PM
== END ==
PROVIDERS: Family Provider Nurse Practitioner; PCP Registered Nurse Diabetes Educator; Referring Provider Internal Medicine Cardiovascular Disease; Visit Provider Internal Medicine Cardiovascular Disease
DX: I48.0 Paroxysmal atrial fibrillation (principal)
CPT/HCPCS: 93306

== ENCOUNTER → 2025-02-16 10:42 | Outpatient (CLI) | payer MEDICARE, OTHER, SELFPAY ==
[2023-11-21 15:56] VITALS: BMI 45.8
--- NOTE | 2025-02-16 10:44 | DI.US.S_ITS ---
PROCEDURE: US CAROTID DOPPLER BI INDICATIONS: CAD TECHNIQUE: Color and pulse Doppler interrogation was performed of both carotid systems, with image documentation and velocity measurements. COMPARISON: None. FINDINGS: Stenosis calculations are based on SRU (Society of Radiologists in Ultrasound) criteria. Right side: Brachial blood pressure: 120/68 mm Hg. Common carotid artery peak systolic velocity: 87 cm/sec. Internal carotid artery peak systolic velocity: 110 cm/sec. Internal carotid artery end diastolic velocity: 30 cm/sec. External carotid artery peak systolic velocity: 109 cm/sec. ICA/CCA peak systolic ratio: 1.3 . Mcwilliams scale imaging description: No plaque Percent internal carotid artery stenosis: Fully patent. Vertebral artery: Flow direction is antegrade. Left side: Brachial blood pressure: 116/65 mm Hg. Common carotid artery peak systolic velocity: 79 cm/sec. Internal carotid artery peak systolic velocity: 111 cm/sec. Internal carotid artery end diastolic velocity: 38 cm/sec. External carotid artery peak systolic velocity: 96 cm/sec. ICA/CCA peak systolic ratio: 1.4 . Mcwilliams scale imaging description: No plaque Percent internal carotid artery stenosis: Fully patent . Vertebral artery: Flow direction is antegrade. IMPRESSION: 1. In the right carotid artery, there is no stenosis based on peak systolic velocity criteria. 2. In the left carotid artery, there is no stenosis based on peak systolic velocity criteria. 3. Antegrade vertebral arteries. Dictated by: Akanksha Awad MD, PhD on 02/16/2025 at 11:42 Approved by: Akanksha Awad MD, PhD on 02/16/2025 at 11:43
== END ==
LOC: US 10:43
PROVIDERS: Family Provider Nurse Practitioner; PCP Registered Nurse Diabetes Educator; Referring Provider Internal Medicine Cardiovascular Disease; Visit Provider Internal Medicine Cardiovascular Disease
DX: I77.9 Disorder of arteries and arterioles, unspecified (principal)
CPT/HCPCS: 93880

== ENCOUNTER → 2025-06-16 16:05 | Outpatient (CLI) | payer MEDICARE, OTHER, SELFPAY ==
[2023-11-21 15:56] VITALS: BMI 45.8
--- NOTE | 2025-06-16 16:06 | DI.RAD.S_ITS ---
PROCEDURE: XR CHEST 2V INDICATIONS: unable to take full breath and wheezing x 3 weeks TECHNIQUE: 2 views of the chest were acquired. COMPARISON: None. FINDINGS: Surgical changes and devices: None. Lungs and pleura: Mild bronchial wall thickening is seen. No definite focal infiltrate.. No pleural effusions or pneumothorax. Mediastinum: Mediastinal contours are normal. Heart size is normal. Bones and chest wall: No suspicious bony abnormalities. Soft tissues appear unremarkable. IMPRESSION: Suggestion of mild reactive airway disease such as bronchitis or viral illness. No focal infiltrate, pleural effusion or pneumothorax. Dictated by: John Cortez M.D. on 06/16/2025 at 16:29 Approved by: John Cortez M.D. on 06/16/2025 at 16:29
== END ==
PROVIDERS: Family Provider Nurse Practitioner; PCP Registered Nurse Diabetes Educator; Referring Provider Physician Assistant; Visit Provider Physician Assistant
DX: J45.20 Mild intermittent asthma, uncomplicated (principal)
CPT/HCPCS: 71046

== ENCOUNTER → 2025-07-13 08:39 | Outpatient (CLI) | payer MEDICARE, OTHER, SELFPAY ==
[2023-11-21 15:56] VITALS: BMI 45.8
[2025-07-13 10:03] LABS: Hematocrit 41.5 % (36-46); Hemoglobin 13.8 g/dL (12.0-16.0); Mean Corpuscular HGB Conc 33.3 % (30-36); Mean Corpuscular Hemoglobin 29.1 PG (26-34); Mean Corpuscular Volume 87.5 fL (80-100); Platelet Count 281 X10^3/uL (150-400)
[2025-07-13 10:35] LABS: Alanine Aminotransferase 17 IU/L (<35); Albumin 4.1 g/dL (3.5-5.0); Albumin Globulin Ratio 1.5 (1.0-2.8); Alkaline Phosphatase 88 U/L (38-126); Blood Urea Nitrogen 14 mg/dL (7-17); Calcium 9.4 mg/dL (8.4-10.2); Carbon Dioxide 25 mmol/L (22-32); Chloride 107 mmol/L (98-107); Cholesterol 139 mg/dL (140-199); Estimated Glomerular Filt Rate > 60 mL/min (>60); Globulin 2.7 g/dL (1.7-4.1); Glucose 105 mg/dL (70-99); HDL Cholesterol 55 mg/dL (40-60); HEMOLYSIS < 15 (0-50); Potassium 4.2 mmol/L (3.4-5.1); Sodium 139 mmol/L (137-145); Total Protein 6.8 g/dL (6.3-8.2); Triglycerides 140 mg/dL (35-150)
[2025-07-13 10:45] LABS: Hemoglobin A1C% w Est Avg Glu 6.0 % (4.0-6.0)
[2025-07-13 10:59] LABS: TSH w/ Reflex to FT4 1.87 uIU/mL (0.47-4.68)
== END ==
PROVIDERS: Family Provider Nurse Practitioner; PCP Registered Nurse Diabetes Educator; Referring Provider Registered Nurse Diabetes Educator; Visit Provider Registered Nurse Diabetes Educator
DX: R73.03 Prediabetes (principal); I10 Essential (primary) hypertension; E03.9 Hypothyroidism, unspecified; Z91.89 Other specified personal risk factors, not elsewhere classified
CPT/HCPCS: 36415; 80053; 80061; 83036; 84443; 85027